=== PATIENT | female | born 1980 | race Caucasian/White ===

== ENCOUNTER → 2021-05-26 16:54 | Outpatient (CLI) | payer OTHER, SELFPAY | PROVIDERS: Visit Provider Podiatrist | DX: M79.674 Pain in right toe(s) (principal); M79.675 Pain in left toe(s) | CPT/HCPCS: 87102; 87206 ==

== ENCOUNTER → 2021-06-15 12:58 | Outpatient (CLI) | payer OTHER, SELFPAY ==
--- NOTE | 2021-06-15 13:04 | XR_ITS ---
PROCEDURE: XR ANKLE WT BEARING LT MIN 3V CLINICAL INDICATION: ankle pain And swelling COMPARISON: CR ANKL3 ANKLE-LT-3 VIEWS from 06/14/2017 FINDINGS: There is mild diffuse soft tissue swelling both medially and laterally. There is an old unfused fracture fragment adjacent to the medial malleolus with smooth borders. Lateral malleolus appears normal. Ankle mortise is normal. There are calcaneal enthesophytes both at the insertion of the plantar tendon and Achilles tendon. IMPRESSION: Mild diffuse soft tissue swelling, stable posttraumatic change medial malleolus Dictated by: Dr. Jeff Youngblood MD 06/16/2021 08:34 Dr. Jeff Youngblood MD in [place] 06/16/2021 08:34
== END ==
PROVIDERS: PCP Family Medicine; Visit Provider Podiatrist
DX: G89.29 Other chronic pain (principal); M25.372 Other instability, left ankle; M25.572 Pain in left ankle and joints of left foot
CPT/HCPCS: 73610

== ENCOUNTER → 2021-07-28 13:25 | Outpatient (CLI) | payer OTHER, SELFPAY ==
--- NOTE | 2021-07-28 13:42 | XR_ITS ---
PROCEDURE: XR FOOT WT BEARING RT 3V CLINICAL INDICATION: right 5th toe r/o fracture COMPARISON: CR FTR3 FOOT-RT-3 VIEWS from 04/26/2017 FINDINGS: No fracture or dislocation. No lytic or blastic change. There is normal mineralization. The joint spaces are well-preserved. No significant degenerative/arthritic changes. No erosive changes evident. Other findings:There is a small Achilles enthesophyte and tiny calcaneal spur. Minimal spurring noted along the anterior aspect of the navicular cuneiform joint. IMPRESSION: No acute findings. Dictated by: Parag Glasgow MD 07/28/2021 15:22 Parag Glasgow MD in [place] 07/28/2021 15:23
[2021-07-28 14:05] LABS: Basophils # 0.1 K/mm3 (0-0.2); Basophils % 0.6 % (0.1-2.0); Eosinophils # 0.4 K/mm3 (0.0-0.4); Eosinophils % 4.2 % (0.1-12.0); Hematocrit 41.2 % (37.0-47.0); Lymphocytes # 2.5 K/mm3 (0.7-4.5); Lymphocytes % 26.5 % (10-50); Mean Corpuscular Hemoglobin 29.9 pg (27.0-31.2); Mean Corpuscular Volume 88.2 fl (81-99); Mean Platelet Volume 9.6 fl (7.4-10.4); Monocytes # 0.4 K/mm3 (0.1-1.0); Monocytes % 3.6 % (1.7-9.3); Neutrophils # 6.2 K/mm3 (1.8-7.8); Platelet Count 331 K/mm3 (142-424); Red Blood Count 4.68 M/mm3 (4.20-5.40); Red Cell Distribution Width 13.4 % (11.5-17.5); White Blood Count 9.6 K/mm3 (4.8-10.8)
[2021-07-28 14:24] LABS: Hemoglobin A1C 5.4 % (4.0-6.0)
[2021-07-28 15:04] LABS: Alanine Aminotransferase 29 U/L (12-78); Albumin Level 3.9 g/dl (3.5-5.0); Albumin/Globulin Ratio 1.4 (1.1-1.8); Alkaline Phosphatase 83 U/L (38-126); Anion Gap 9.1 mEq/L (5-15); Aspartate Amino Transferase 29 U/L (14-36); Bilirubin,Total 0.5 mg/dl (0.2-1.3); Blood Urea Nitrogen 16 mg/dl (7-17); Calcium 9.4 mg/dl (8.4-10.2); Carbon Dioxide 24 mmol/L (22.0-30.0); Chloride 108 mmol/L (98-107); Estimated Glomerular Filt Rate 69 ml/min (>60); GFR (African American) 83 ML/MIN (>60); Globulin 2.8 g/dL (1.3-3.2); Glucose 116 mg/dl (74-100); Potassium 4.1 mmoL/L (3.5-5.1); Sodium 137 mmol/L (136-145); Total Protein,Serum 6.7 g/dl (6.3-8.2)
[2021-07-28 15:10] LABS: C-Reactive Protein 5.9 mg/L (0-4)
[2021-07-28 15:38] LABS: Thyroid Stimulating Hormone 2.64 uIU/mL (0.465-4.68)
[2021-07-28 16:12] LABS: Vitamin B12 267 pg/mL (239-931)
[2021-07-28 16:13] LABS: Folate 4.63 ng/mL
[2021-08-07 17:09] LABS: 1,25 Dihydroxy Vitamin D 34 pg/mL (.); 1,25-Dihydroxy, Vitamin D-2 <10 pg/mL (.); 1,25-Dihydroxy, Vitamin D-3 34 pg/mL (.)
== END ==
PROVIDERS: PCP Family Medicine; Visit Provider Podiatrist
DX: M79.674 Pain in right toe(s) (principal)
CPT/HCPCS: 36415; 73630; 80053; 82607; 82652; 82746; 83036; 84443; 85025; 86140; 87102; 87206; 87220

== ENCOUNTER → 2022-04-22 10:02 | Outpatient (CLI) | payer OTHER, SELFPAY | PROVIDERS: PCP Family Medicine; Visit Provider Orthopaedic Surgery | DX: M25.532 Pain in left wrist (principal) ==

== ENCOUNTER → 2022-06-29 14:28 | Outpatient (CLI) | payer OTHER, SELFPAY ==
--- NOTE | 2022-06-29 14:28 | MR_ITS ---
FINAL REPORT CLINICAL HISTORY: back pain. Low back pain. left side numbness stops at ankles. fall this morning and hit left side of back on table. FINDINGS: Multiplanar MR imaging of the lumbar spine was performed without contrast. On the sagittal T2-weighted images, there is abnormal decreased signal throughout the lumbar discs. The vertebrae are of normal height. The vertebral alignment is normal. L1-2: There is no significant canal stenosis or neural foraminal narrowing. L2-3: There is no significant canal stenosis or neural foraminal narrowing. L3-4: There is no significant canal stenosis or neural foraminal narrowing. L4-5: There is a mild disc bulge. There is mild bilateral neural foraminal narrowing. L5-S1: There is no significant canal stenosis or neural foraminal narrowing. IMPRESSION: Mild disc bulge at L4-5. No acute bony abnormality. Reviewed, Interpreted and Dictated by Jonathan Mata MD Transcribed by Rani Florez Authenticated and [facility]
== END ==
PROVIDERS: PCP Emergency Medicine; Visit Provider Emergency Medicine
DX: M54.9 Dorsalgia, unspecified (principal); M54.50 Low back pain, unspecified
CPT/HCPCS: 72148; 76376

== ENCOUNTER → 2022-08-03 17:11 | Outpatient (CLI) | payer OTHER, SELFPAY | PROVIDERS: Visit Provider Podiatrist | DX: R22.40 Localized swelling, mass and lump, unspecified lower limb (principal) | CPT/HCPCS: 87070; 87205 ==

== ENCOUNTER 2022-08-09 11:11 | Emergency (ER) | payer OTHER, SELFPAY ==
[2022-08-09 11:40] VITALS: BP 151/99; PULSE 72; RESP 19; TEMP 37; O2SAT 99; BMI 41.7
--- NOTE | 2022-08-09 12:16 | EXP.UTC ---
Discharge Plan Disposition Patient Disposition: Home, Self-Care Condition: Good Prescriptions Prescriptions: New ondansetron 4 mg tablet,disintegrating 4 mg PO Q8H PRN (Reason: nausea and vomiting) Qty: 10 0RF No Action promethazine 25 mg tablet 25 mg PO PRN mupirocin 2 % ointment 1 applic topical BID 21 Days Qty: 22 1RF Rx Instructions: Apply to affected area up to twice daily doxycycline hyclate 100 mg tablet 100 mg PO BID 10 Days Qty: 20 0RF tramadol 50 mg tablet 50 mg PO Q6H PRN (Reason: pain) 5 Days Qty: 20 0RF methylprednisolone 4 mg tablets,dose pack See Rx Instructions PO PER PKG DIR Qty: 21 0RF Rx Instructions: PO PER PKG DIR gabapentin 600 mg tablet 600 mg PO DAILY PRN lidocaine 5 % adhesive patch,medicated 1 patch topical DAILY Qty: 30 0RF Rx Instructions: leave on most painful area for up to 12 hrs diclofenac sodium 1 % gel 2 g topical QID Qty: 100 0RF Rx Instructions: apply to single elbow, wrist or hand; for hand includes palm/fingers/back of hand metoprolol succinate 50 mg tablet extended release 24 hr 50 mg PO DAILY Qty: 90 0RF buspirone 10 mg tablet 10 mg PO DAILY Qty: 90 0RF quetiapine 50 mg tablet 50 mg PO HS Qty: 90 0RF quetiapine 100 mg tablet 100 mg PO DAILY Qty: 90 0RF Rx Instructions: take with a 50mg tablet at HS levothyroxine [Euthyrox] 175 mcg tablet 175 mcg PO DAILY Qty: 90 0RF lisinopril-hydrochlorothiazide 10-12.5 mg tablet 1 tab PO DAILY Qty: 90 0RF Referrals Follow up/Referrals: Deven Pope MD [Primary Care Provider] - See instructions Activity Restrictions/Add. Instructions Additional Instructions/Restrictions: Drink extra fluids with and between meals. If you have difficulty drinking, try very small amounts of water or suck on ice chips. ? Avoid fruit juices, as these do not replace minerals and can actually increase diarrhea. ? Children and adults can use sports drinks to replenish electrolytes. Younger children and infants should use products formulated for children, like oral rehydration solutions. ? Eat food in small amounts and let your stomach recover. ? Get lots of rest. You may feel tired or weak. ? No greasy or fried foods for the next 24-48 hours BRAT diet Bananas Rice Apples and Duque ? Make sure to drink plenty of liquids ? Return if needed ? Straight to ER if any life threatening symptoms ? Zofran as prescribed Follow up with Dr Heredia for further evaluation and treatment and pain control ? Follow up with family doctor in the next 48-72 hours if no improvement or any worsening of symptoms Clinical Impressions Clinical Impression: Nausea & vomiting Qualifiers: Vomiting type: unspecified Qualified Code(s): R11.2 - Nausea with vomiting, unspecified Instructions Patient Instructions: Nausea and Vomiting-Adult, Ondansetron Discharge ED Provider: Adilene Padilla [facility] General Stated complaint: Vomiting,Headache Mode of Arrival: Ambulatory Source of Information: Patient Limitations: No Limitations Time Seen by Provider: 08/09/22 12:17 Description of Symptoms (Recalled from Triage Doc. by RN): PATIENT C/O VOMITING, HEADACHE AND SWEATING. RECENTLY HAD FOOT SURGERY HEENT Symptoms (Recalled from RN notes): Yes Resp Symptoms (Recalled from RN notes): No Skin Symptoms (Recalled from RN notes): No MS Symptoms (Recalled from RN notes): No Functional Status (Recalled from RN notes): WNL History of Present Illness Provider Complaint: Patient states that she had surgery on her right little toe last week, States that she was around sick family member over the weekend and she has been having N/V and felt like she may have had a slight fever last night because she was sweating but didnt check it States that she was worried she may have a stomach bug or something Related Data Ho
[2022-08-09 12:45] VITALS: BP 151/99; PULSE 72; RESP 19; TEMP 37; O2SAT 99
[2022-08-09 12:46] LABS: Adenovirus,PCR Not Detected (NotDetected); Bordetella Pertussis Not Detected (NotDetected); Chlamydophila Pneumoniae, PCR Not Detected (NotDetected); Coronavirus 19, PCR Not Detected (NotDetected); Coronavirus 229E Not Detected (NotDetected); Coronavirus NL63 Not Detected (NotDetected); Coronavirus OC43 Not Detected (NotDetected); Coronovirus HKU1,PCR Not Detected (NotDetected); Human Metapneumovirus Not Detected (NotDetected); Influenza A, PCR Not Detected (NotDetected); Influenza AH1, 2009 Not Detected (NotDetected); Influenza AH1, PCR Not Detected (NotDetected); Influenza AH3,PCR Not Detected (NotDetected); Influenza B, PCR Not Detected (NotDetected); Mycoplasma Pneumoniae, PCR Not Detected (NotDetected); Parainfluenza 1, PCR Not Detected (NotDetected); Parainfluenza 2, PCR Not Detected (NotDetected); Parainfluenza 3, PCR Not Detected (NotDetected); Parainfluenza 4, PCR Not Detected (NotDetected); Respiratory Syncytial Virus Not Detected (NotDetected); Rhinovirus/Enterovirus Not Detected (NotDetected)
== END 2022-08-09 12:48 | disposition home or self-care (01) ==
PROVIDERS: Emergency Provider Nurse Practitioner; PCP Emergency Medicine
DX: R11.2 Nausea with vomiting, unspecified (principal)
CPT/HCPCS: 87581; 87632; 87798; 99212; C9803; G0463; U0003; U0005

== ENCOUNTER → 2022-12-08 23:15 | Outpatient (CLI) | payer OTHER, SELFPAY ==
[2022-12-08 18:51] LABS: Basophils # 0.1 K/mm3 (0-0.2); Basophils % 0.7 % (0.1-2.0); Eosinophils # 0.4 K/mm3 (0.0-0.4); Eosinophils % 3.9 % (0.1-12.0); Hematocrit 46.1 % (37.0-47.0); Hemoglobin 14.6 g/dL (12.2-16.2); Lymphocytes # 2.4 K/mm3 (0.7-4.5); Lymphocytes % 25.7 % (10-50); Mean Corpuscular HGB Conc 31.7 g/dL (31.8-35.4); Mean Corpuscular Hemoglobin 28.5 pg (27.0-31.2); Mean Corpuscular Volume 89.9 fl (81-99); Mean Platelet Volume 10.2 fl (7.4-10.4); Monocytes # 0.4 K/mm3 (0.1-1.0); Monocytes % 4.3 % (1.7-9.3); Neutrophils % 65.5 % (37.0-80.0); Platelet Count 306 K/mm3 (142-424); Red Blood Count 5.12 M/mm3 (4.20-5.40); White Blood Count 9.2 K/mm3 (4.8-10.8)
[2022-12-08 18:58] LABS: Alanine Aminotransferase 33 U/L (12-78); Albumin Level 4.4 g/dl (3.5-5.0); Albumin/Globulin Ratio 1.4 (1.1-1.8); Alkaline Phosphatase 106 U/L (38-126); Anion Gap 13.2 mEq/L (5-15); Aspartate Amino Transferase 32 U/L (14-36); Bilirubin,Total 0.8 mg/dl (0.2-1.3); Blood Urea Nitrogen 11 mg/dl (7-17); Calcium 9.3 mg/dl (8.4-10.2); Carbon Dioxide 28 mmol/L (22.0-30.0); Chloride 102 mmol/L (98-107); Chol/HDL Ratio 4.7 (1-3.5); Cholesterol 197 mg/dl (140-200); Estimated Glomerular Filt Rate 78 ml/min (>60); GFR (African American) 94 ML/MIN (>60); Globulin 3.2 g/dL (1.3-3.2); Glucose 106 mg/dl (74-100); HDL Cholesterol 42 mg/dl (40-60); Potassium 4.2 mmoL/L (3.5-5.1); Sodium 139 mmol/L (136-145); Total Protein,Serum 7.6 g/dl (6.3-8.2); Triglycerides 140 mg/dl (30-150); VLDL Cholesterol 28 mg/dL (0-40)
[2022-12-08 19:10] LABS: Direct LDL Cholesterol 127.27 mg/dL (100-129)
[2022-12-08 19:14] LABS: 25-OH Vitamin D, Total 20.8 ng/mL (30-100)
[2022-12-08 19:29] LABS: Thyroid Stimulating Hormone 0.05 uIU/mL (0.465-4.68)
[2022-12-08 19:47] LABS: Amphetamine/Metha Screen,Urine Negative ng/ml (<1000)
[2022-12-08 19:48] LABS: Barbiturates Screen,Urine Negative ng/ml (<200); Benzodiazepines Screen,Urine Negative ng/ml (<200)
[2022-12-08 19:49] LABS: Cannabinoid Screen,Urine Negative ng/ml (<50)
[2022-12-08 19:50] LABS: Cocaine Screen,Urine Negative ng/ml (<300); Methadone Screen,Urine Negative ng/ml (<300)
[2022-12-08 19:52] LABS: Opiate Screen,Urine Negative ng/ml (<300)
[2022-12-08 20:01] LABS: Phencyclidine Screen,Urine Negative ng/ml (<25)
== END ==
PROVIDERS: PCP Emergency Medicine; Visit Provider Emergency Medicine
DX: I10 Essential (primary) hypertension (principal); Z79.899 Other long term (current) drug therapy; E55.9 Vitamin D deficiency, unspecified
CPT/HCPCS: 80053; 80061; 80305; 82306; 84443; 85025

== ENCOUNTER → 2022-12-20 10:51 | Outpatient (CLI) | payer OTHER, SELFPAY ==
--- NOTE | 2022-12-20 11:07 | XR_ITS ---
FINAL REPORT CLINICAL HISTORY: Right 5th toe Pain FINDINGS: Multiple views of the right toes were obtained. There is no acute fracture. There is no dislocation. There are no acute soft tissue abnormalities. IMPRESSION: No acute process. Reviewed, Interpreted and Dictated by Jonathan Mata MD Transcribed by Danny Morrison Authenticated and [facility]
[2022-12-20 11:57] LABS: Basophils % 0.5 % (0.1-2.0); Eosinophils # 0.3 K/mm3 (0.0-0.4); Eosinophils % 3.5 % (0.1-12.0); Hematocrit 43.1 % (37.0-47.0); Hemoglobin 14.4 g/dL (12.2-16.2); Lymphocytes # 2.3 K/mm3 (0.7-4.5); Lymphocytes % 24.2 % (10-50); Mean Corpuscular HGB Conc 33.3 g/dL (31.8-35.4); Mean Corpuscular Hemoglobin 29.3 pg (27.0-31.2); Mean Corpuscular Volume 87.8 fl (81-99); Mean Platelet Volume 9.8 fl (7.4-10.4); Monocytes # 0.5 K/mm3 (0.1-1.0); Neutrophils # 6.3 K/mm3 (1.8-7.8); Neutrophils % 66.9 % (37.0-80.0); Platelet Count 312 K/mm3 (142-424); Red Cell Distribution Width 13.2 % (11.5-17.5); White Blood Count 9.4 K/mm3 (4.8-10.8)
[2022-12-20 12:20] LABS: Chloride 102 mmol/L (98-107); Sodium 137 mmol/L (136-145)
[2022-12-20 12:22] LABS: Blood Urea Nitrogen 12 mg/dl (7-17); Estimated Glomerular Filt Rate 78 ml/min (>60); GFR (African American) 94 ML/MIN (>60)
[2022-12-20 12:23] LABS: Alanine Aminotransferase 33 U/L (12-78); Albumin/Globulin Ratio 1.3 (1.1-1.8); Alkaline Phosphatase 100 U/L (38-126); Aspartate Amino Transferase 30 U/L (14-36); Bilirubin,Total 0.6 mg/dl (0.2-1.3); Calcium 9.3 mg/dl (8.4-10.2); Carbon Dioxide 29 mmol/L (22.0-30.0); Globulin 3.2 g/dL (1.3-3.2); Glucose 98 mg/dl (74-100); Total Protein,Serum 7.2 g/dl (6.3-8.2)
[2022-12-20 12:56] LABS: Erythrocyte Sedimentation Rate 51 mm/hr (0-20)
[2022-12-20 14:34] LABS: Uric Acid 7.3 mg/dl (2.5-6.2)
[2022-12-20 14:39] LABS: C-Reactive Protein 7.3 mg/L (0-4)
== END ==
PROVIDERS: PCP Emergency Medicine; Visit Provider Podiatrist
DX: M79.674 Pain in right toe(s) (principal)
CPT/HCPCS: 36415; 73660; 80053; 84550; 85025; 85651; 86140

== ENCOUNTER → 2023-02-02 23:18 | Outpatient (CLI) | payer OTHER, SELFPAY ==
[2023-02-02 17:58] LABS: Blood Urea Nitrogen 13 mg/dl (7-17); Calcium 9.3 mg/dl (8.4-10.2); Carbon Dioxide 28 mmol/L (22.0-30.0); Chloride 104 mmol/L (98-107); Estimated Glomerular Filt Rate 78 ml/min (>60); GFR (African American) 94 ML/MIN (>60); Glucose 95 mg/dl (74-100); Sodium 140 mmol/L (136-145); Uric Acid 7.5 mg/dl (2.5-6.2)
== END ==
PROVIDERS: PCP Emergency Medicine; Visit Provider Emergency Medicine
DX: E66.9 Obesity, unspecified (principal); Z68.39 Body mass index [BMI] 39.0-39.9, adult
CPT/HCPCS: 80048; 84550

== ENCOUNTER → 2023-02-21 23:34 | Outpatient (CLI) | payer OTHER, SELFPAY ==
[2023-02-21 18:36] LABS: Amphetamine/Metha Screen,Urine Negative ng/ml (<1000)
[2023-02-21 18:37] LABS: Barbiturates Screen,Urine Negative ng/ml (<200)
[2023-02-21 18:39] LABS: Benzodiazepines Screen,Urine Negative ng/ml (<200)
[2023-02-21 18:40] LABS: Cannabinoid Screen,Urine Negative ng/ml (<50); Cocaine Screen,Urine Negative ng/ml (<300)
[2023-02-21 18:41] LABS: Methadone Screen,Urine Negative ng/ml (<300); Opiate Screen,Urine Negative ng/ml (<300)
[2023-02-21 18:42] LABS: Phencyclidine Screen,Urine Negative ng/ml (<25)
== END ==
PROVIDERS: PCP Emergency Medicine; Visit Provider Emergency Medicine
DX: Z79.899 Other long term (current) drug therapy (principal)
CPT/HCPCS: 80305

== ENCOUNTER → 2023-02-22 11:32 | Outpatient (CLI) | payer OTHER, SELFPAY | PROVIDERS: PCP Emergency Medicine; Visit Provider Emergency Medicine | DX: R55 Syncope and collapse (principal) | CPT/HCPCS: 93225; 93226 ==

== ENCOUNTER 2023-02-22 19:55 | Emergency (ER) | payer OTHER, SELFPAY ==
[2023-02-22 19:55] VITALS: BP 128/77; PULSE 79; RESP 18; TEMP 37.1; O2SAT 99; BMI 40.1
--- NOTE | 2023-02-22 19:58 | ECG_ITS ---
APPROVED REPORT Exam: Resting ECG HR:84 bpm ECG Measurements Heart Rate 84 AXES WY 179 P 21 QRSd 100 QRS 7 QT 365 T -7 QTc 406 Conclusion SINUS RHYTHM NORMAL ECG UNCONFIRMED REPORT Electronically signed by : August Mackey MD 02/24/2023 21:19:06
--- NOTE | 2023-02-22 20:19 | XR_ITS ---
PROCEDURE INFORMATION: Exam: XR Chest Exam date and time: 02/22/2023 8:28 PM Age: 42 years old Clinical indication: Pain; Chest pressure; Additional info: Chest pain TECHNIQUE: Imaging protocol: Radiologic exam of the chest. Views: 1 view. COMPARISON: No relevant prior studies available. FINDINGS: Lungs: Low lung volumes with associated vascular crowding and bibasilar atelectasis. Pleural spaces: Unremarkable. No pleural effusion. No pneumothorax. Heart/Mediastinum: Unremarkable. No cardiomegaly. Bones/joints: Unremarkable. IMPRESSION: No acute findings.
[2023-02-22 20:30] LABS: Basophils # 0.1 K/mm3 (0-0.2); Basophils % 0.6 % (0.1-2.0); Chloride 102 mmol/L (98-107); Eosinophils # 0.5 K/mm3 (0.0-0.4); Hematocrit 41.4 % (37.0-47.0); Hemoglobin 13.2 g/dL (12.2-16.2); Lymphocytes # 2.7 K/mm3 (0.7-4.5); Lymphocytes % 21.4 % (10-50); Mean Corpuscular HGB Conc 31.9 g/dL (31.8-35.4); Mean Corpuscular Hemoglobin 28.3 pg (27.0-31.2); Mean Corpuscular Volume 88.7 fl (81-99); Mean Platelet Volume 9.1 fl (7.4-10.4); Monocytes # 0.5 K/mm3 (0.1-1.0); Monocytes % 4.1 % (1.7-9.3); Neutrophils # 8.7 K/mm3 (1.8-7.8); Neutrophils % 69.9 % (37.0-80.0); Platelet Count 316 K/mm3 (142-424); Potassium 3.2 mmoL/L (3.5-5.1); Red Blood Count 4.66 M/mm3 (4.20-5.40); Red Cell Distribution Width 13.6 % (11.5-17.5); Sodium 140 mmol/L (136-145); White Blood Count 12.5 K/mm3 (4.8-10.8)
[2023-02-22 20:31] VITALS: BP 110/79; PULSE 76; O2SAT 98
[2023-02-22 20:32] LABS: Amylase 66 U/L (30-110)
--- NOTE | 2023-02-22 20:32 | PC.NURSE ---
RAD at for CXR
[2023-02-22 20:33] LABS: Alanine Aminotransferase 31 U/L (12-78); Albumin/Globulin Ratio 1.3 (1.1-1.8); Alkaline Phosphatase 91 U/L (38-126); Anion Gap 10.2 mEq/L (5-15); Aspartate Amino Transferase 31 U/L (14-36); Bilirubin,Total 0.5 mg/dl (0.2-1.3); Blood Urea Nitrogen 14 mg/dl (7-17); Calcium 8.8 mg/dl (8.4-10.2); Carbon Dioxide 31 mmol/L (22.0-30.0); Creatinine Clearance Estimated 120 mL/min (50-200); Estimated Glomerular Filt Rate 60 ml/min (>60); GFR (African American) 73 ML/MIN (>60); Globulin 3.2 g/dL (1.3-3.2); Glucose 116 mg/dl (74-100); Lipase 78 U/L (23-300); Total Protein,Serum 7.2 g/dl (6.3-8.2)
--- NOTE | 2023-02-22 20:41 | PC.NURSE ---
Pt ambulatory to bathroom
[2023-02-22 20:43] LABS: Microscopic, Urine URINE MICROSCOPIC (MICROSCOPIC)
[2023-02-22 20:45] LABS: Troponin I < 0.01 ng/ml (0.00-0.034)
[2023-02-22 20:48] LABS: Appearance,Urine CLEAR (Clear); Bilirubin,Urine Negative (Negative); Blood, Urine Negative (Negative); Color,Urine YELLOW (Yellow); Glucose,Urine (UA) Negative (Negative); Ketones,Urine Negative (Negative); Leukocyte Esterase,Urine Negative (Negative); Nitrate,Urine Negative (Negative); PH,Urine 6.5 (5.0-8.5); Protein,Urine Negative (Negative); Urobilinogen,Urine 0.2 EU/dl (0.2)
[2023-02-22 20:59] LABS: Squamous Epithelial Cell,Urine Occasional #/hpf (0-5); WBC,Urine Occasional #/hpf (0-3)
[2023-02-22 21:00] VITALS: BP 130/81; PULSE 78; O2SAT 98
--- NOTE | 2023-02-22 21:18 | PC.NURSE ---
pt's boyfriend, Fabian, called and requesting an update. Pt gave consent to s/w him and provide an update.
[2023-02-22 21:31] VITALS: BP 102/65; PULSE 77; O2SAT 98
[2023-02-22 22:01] VITALS: BP 127/78; PULSE 79; O2SAT 96
--- NOTE | 2023-02-22 22:05 | PC.NURSE ---
Dr. Pope at
--- NOTE | 2023-02-22 22:09 | [facility].EDCP ---
Discharge Plan Disposition Patient Disposition: Home, Self-Care Chief Complaint: Chest Pain Prescriptions Prescriptions: No Action allopurinol 100 mg tablet 100 mg PO DAILY indomethacin 50 mg capsule 50 mg PO BID PRN (Reason: gout) Rx Instructions: administer with food or milk lithium carbonate 300 mg tablet extended release 300 mg PO BID tizanidine 4 mg capsule 4 mg PO HS ipratropium-albuterol 0.5 mg-3 mg(2.5 mg base)/3 mL solution for nebulization 3 ml inhalation Q4-6H PRN (Reason: shortness of breath or wheezing) Qty: 180 1RF albuterol sulfate [Proventil HFA] 90 mcg/actuation HFA aerosol inhaler 2 puff inhalation Q8H PRN (Reason: shortness of breath or wheezing) Qty: 8.5 1RF promethazine 25 mg tablet 25 mg PO Q8H PRN (Reason: nausea and vomiting) Qty: 30 0RF cholecalciferol (vitamin D3) 1,250 mcg (50,000 unit) capsule 1,250 mcg PO WEEKLY Qty: 12 3RF acetaminophen-codeine 300-30 mg tablet 1 tab PO TID PRN (Reason: pain) Qty: 15 0RF metoprolol succinate 50 mg tablet extended release 24 hr See Rx Instructions .ROUTE .COMPLEX Rx Instructions: Take 1 tablet by mouth once daily gabapentin 400 mg capsule 400 mg PO TID quetiapine 100 mg tablet See Rx Instructions .ROUTE .COMPLEX Rx Instructions: TAKE 1 TABLET BY MOUTH ONCE DAILY, TAKE WITH A 50 MG TABLET AT BEDTIME. lidocaine 5 % adhesive patch,medicated 1 patch topical DAILY Rx Instructions: leave on most painful area for up to 12 hrs nicotine 21 mg/24 hr patch 24 hour 1 patch transdermal DAILY lisinopril-hydrochlorothiazide 10-12.5 mg tablet 1 tab PO DAILY quetiapine 50 mg tablet See Rx Instructions .ROUTE .COMPLEX Rx Instructions: TAKE 1 TABLET BY MOUTH AT BEDTIME NIGHTLY budesonide-formoterol [Symbicort] 80-4.5 mcg/actuation HFA aerosol inhaler 1 puff inhalation BID levothyroxine 125 mcg capsule 125 mcg PO DAILY Referrals Follow up/Referrals: Deven Pope MD [Primary Care Provider] - See instructions Luis Andrew MD [Staff Physician] - See instructions Clinical Impressions Clinical Impression: Chest pain Instructions Patient Instructions: DI for Chest Pain Discharge ED Provider: Toshia (ED),Deven Feldman Chest Pain HPI General Chief Complaint: Chest Pain Stated Complaint: Chest Pain Time Seen by Provider: 02/22/23 21:50 Mode of Arrival: EMS Source of Information: Patient and Medical Record Limitations: No Limitations Description of Symptoms (Recalled from ER Triage Doc. by RN): pt reports that she has been having new onset chest pain since this morning when she was seen to have a halter monitor placed. the pt states that she has had stomach issues since yesterday and assumed it was just gas. the pt states her pain is 9/10 in her chest and goes through to the back History of Present Illness HPI narrative: pt with episode of lt sided chest pain and was relieved with ntg per ems - pt wearing holter - MD complaint: chest pain indicative of cardiac Onset (ago): hour(s) Duration: now resolved Activity at onset: during rest Pain location: left chest Severity: moderate Quality: tightness Relieving factors: nitroglycerin Risk Factors for CAD: Hypertension, Family Hx of CAD and Smoking Treatments prior to or on arrival for Cardiac Chest Pain: aspirin and nitroglycerin TR[place]ON Score for Non-Stemi Age of Patient: 40-49 years old Heart Rate: 70-89 bpm Systolic Blood Pressure: 120-139 mmhg Serum Creatinine: 0.80-1.19 mg/dl CHF [place] Class: I-No CHF Other Risk Factors: None Non-Stemi Risk Score: 75 Risk Stratification: 1-108 = Low Risk Related Data On Oral Contraceptives: No Home Medications Medication Instructions Recorded Confirmed allopurinol 100 mg tablet 100 mg PO DAILY . 02/02/23 02/22/23 indomethacin 50 mg capsule 50 mg PO BID PRN gout 02/02/23 02/22/23 lithium carbonate 300 mg 300 mg PO BID .
--- NOTE | 2023-02-22 22:11 | PC.NURSE ---
speaking with pt
--- NOTE | 2023-02-22 22:12 | PC.NURSE ---
Dr. Andrew paged
--- NOTE | 2023-02-22 22:13 | PC.NURSE ---
Dr. Pope speaking with Dr. Andrew
[2023-02-22 22:34] VITALS: BP 127/75; PULSE 84; RESP 20; TEMP 37; O2SAT 98
== END 2023-02-22 22:39 | disposition home or self-care (01) ==
PROVIDERS: Emergency Provider Emergency Medicine; PCP Emergency Medicine
DX: R07.9 Chest pain, unspecified (principal); I10 Essential (primary) hypertension; F41.9 Anxiety disorder, unspecified; F32.A Depression, unspecified; E07.9 Disorder of thyroid, unspecified; F17.200 Nicotine dependence, unspecified, uncomplicated
CPT/HCPCS: 71045; 80053; 81001; 82150; 83690; 84484; 85025; 93005; 99285

== ENCOUNTER → 2023-03-09 09:24 | Outpatient (CLI) | payer OTHER, SELFPAY ==
--- NOTE | 2023-03-09 09:24 | MR_ITS ---
FINAL REPORT TECHNIQUE: Multiplanar and multisequence imaging of the brain was obtained before and after contrast administration. CLINICAL HISTORY: convulsions per patient she has been having passing out spells constant headaches 2-3 times within a month x 1 year and getting worse 22ml prohance given COMPARISON: None FINDINGS: The gyri and sulci are within normal limits for age. There is no mass effect or midline shift. Signal intensity is normal. No hydrocephalus. Low-lying cerebellar tonsils are present. The cerebellum and brainstem are otherwise normal in appearance. There is normal signal in the proximal cervical cord. There are no areas of restricted diffusion on diffusion weighted images to suggest acute infarct. Soft tissues are without acute abnormality. No pathologic contrast enhancement is identified. IMPRESSION: No acute intracranial abnormality and no pathologic contrast enhancement. Reviewed, Interpreted and Dictated by Irena Castro MD Transcribed by Lory Srivastava Authenticated and [facility]
== END ==
PROVIDERS: PCP Emergency Medicine; Visit Provider Specialist
DX: R55 Syncope and collapse (principal); R56.9 Unspecified convulsions
CPT/HCPCS: 70553; A9576

== ENCOUNTER → 2023-03-10 09:15 | Day surgery (SDC) | payer OTHER, SELFPAY ==
[2023-03-10 10:06] VITALS: BP 136/99; PULSE 67; RESP 18; O2SAT 96
--- NOTE | 2023-03-10 13:18 | EXP.TILT ---
Findings:: PROCEDURE: Upright Tilt Table Test REQUESTING PROVIDER: Marivel Argueta MD INDICATION: Recurrent loss of consciousness Beta Blockers:
--- NOTE | 2023-03-10 13:22 | EXP.TILT ---
Findings:: PROCEDURE: Upright Tilt Table Test REQUESTING PROVIDER: Marivel Argueta MD INDICATION: Recurrent loss of consciousness BETA BLOCKERS: Unsure PRETEST VITAL SIGNS (supine): BP 143/77, HR 55 and regular, O2sats 97% PROCEDURE SUMMARY: Patient was prepped per protocol, IV started, connected to heart, blood pressure and oxygen saturation monitors and safety straps applied. She was then tilted to 70 degrees upright for a total of 35 minutes. After being raised upright she complained of a headache and worsening nausea (she was nauseated prior to the procedure) and some mild lightheadedness. Her symptoms persisted throughout the test with the nausea getting somewhat worse and the lightheadedness and headache remaining about the same. She had no syncope or near syncope. Her systolic blood pressure dropped from 143 supine to 114 immediately upon being placed in the upright position while her diastolic BP went up slightly (from 77 to 84). Heart rate increased from 55 bpm supine to 70 bpm immediately after being raised upright. While in the upright position her BP slowly increased to a high of 129/93 after 25 minutes. Heart rate increased slightly to a maximum of 78 bpm, also at 25 minutes upright. After 25 minutes upright there was minimal change in either the BP or HR. Her rhythm was normal sinus throughout and O2sats remained in the mid 90s. CONCLUSIONS: Evidence of mildly symptomatic orthostatic hypotension.
== END ==
PROVIDERS: PCP Emergency Medicine; Visit Provider Specialist
DX: I95.1 Orthostatic hypotension (principal); Z79.899 Other long term (current) drug therapy; R55 Syncope and collapse
CPT/HCPCS: 93660

== ENCOUNTER → 2023-03-30 10:54 | Outpatient (CLI) | payer OTHER, SELFPAY ==
--- NOTE | 2023-03-30 10:54 | NM_ITS ---
APPROVED REPORT Exam: Nuclear Stress Test Indication: chest pain..soa..fatigue..palpitations Patient Location: Outpatient Stress Tech: Jeannine Shepard [place] Tech:Kassi Anand ALEJANDRADhiraj RT(R)(N) Ht: 5 ft 4 in Wt: 243 lbs Bra Size: 2xl HR: 72 bpm BP: 122/73 mmHg BSA: 2.12 m2 Rhythm: NSR TID: 0.94 BMI: 41.7 History: chest pain..soa..fatigue..palpitations Procedure: Patient received 0.4 mg of intravenous Lexiscan, resting heart rate 72 bpm, resting blood pressure 122/73 mmHg, with Lexiscan maximum heart rate achieved was 92 bpm which is 85 % of the maximum predicted heart rate and blood pressure was 127/75 mmHg. With Lexiscan, patient denied any complaint of chest pain. Cardiac Stress and Resting SPECT Images: Cardiac Stress and Resting SPECT images were obtained using technetium 99m Myoview 32.9 mCi stress and 10.42 mCi at rest. Resting and stress imaging in both supine and prone positions demonstrate no evidence of fixed or reversible perfusion defects. Gated imaging demonstrates normal global and regional LV systolic function. LVEF is calculated at 60%. Conclusion: No evidence of fixed or reversible perfusion defects. Gated imaging demonstrates normal global and regional LV systolic function. LVEF is calculated at 60%. Electronically signed by : Daria Candelaria, 04/02/2023 17:04:42
--- NOTE | 2023-03-30 12:46 | CA_ITS ---
APPROVED REPORT EXAM: Comprehensive 2D, Doppler, and color-flow Echocardiogram Conservation Of Resources Commissioner: Margarita Collins, RCS, RVS Ht: 5 ft 4 in Wt: 232lbs BSA: 2.08 BP: 127/78 mmHg Indications: syncope, SOA, smoker, Family hx- HD, Obesity 2D Dimensions Aortic Root 2.95 cm LA Volume 41.30 mL Left Atrium 3.20 cm LA Volume Index 19.40 mL/m2 (M/F) 16-34 LVOT 2.00 cm (M/F) 1.5-2.5 M-Mode Dimensions RVDd 2.09 cm (0.9-2.6) LA Diam 3.54 cm (1.9-4.0) LVDd 4.87 cm (3.5-5.7) Ao Diam 3.13 cm (2.0-3.7) LVDs 3.15 cm (3.5-5.7) IVSd 0.87 cm (0.6-1.1) PWd 1.10 cm (0.6-1.1) EF (Teich) 64.60% EPSs 0.38 cm FS 35.30% EDV (Teich) 111.20 mL TAPSE 2.54 (<1.7) ESV (Teich) 39.40 mL LV Diastology E Decel Time 213.00 (160-240 msec) E/A Ratio 1.47 MED E' 7.60 (< 7 cm/sec) MED A' 10.90 cm/s E'/MED E' Ratio 9.83 (>14) LAT E' 10.80 (<10 cm/sec) LAT A' 7.80 cm/s E/LAT E' Ratio 6.92 (>14) Aortic Valve LVOT Max 100.00 (70-110 cm/s) LVOT VTI 20.01 cm AoV Peak Paul. 133.00 (50-130 cm/s) AO Peak GR. 7.00 mmHg AO Mean GR. 3.50 (<5 mmHg) AO VTI 26.39 (18-25 cm) MAYRA (VTI) 2.38 (2.5-4.5 cm2) Mitral Valve MV A Velocity 51.00 (40-130 cm/s) E/A Ratio 1.47 MV Decel. Time 213.00 (160-240 ms) Pulmonary Valve PV Peak Velocity 78.00 (50-150 cm/s) W[place] End VMAX 247.00 cm/s Left Ventricle The left ventricle is normal size. The left ventricular systolic function is normal. The left ventricular ejection fraction is within the normal range. There is increased LV wall thickness (IVSd 1.3 cm). There is no evidence of LVOT gradient at rest. There is normal LV segmental wall motion. The left ventricular diastolic function is normal. LVEF is 55%. Right Ventricle The right ventricle is normal size. The right ventricular systolic function is normal. There is increased RV wall thickness. Atria The left atrium size is normal. The right atrium size is normal. There is no Doppler evidence of interatrial shunt. Aortic Valve The aortic valve opens well. There is no aortic valvular stenosis. No aortic regurgitation is present. Mitral Valve The mitral valve is normal in structure. There is no OSORIO or septal contact. No evidence of mitral valve stenosis. No mitral regurgitation. Tricuspid Valve The tricuspid valve leaflets are thin and pliable. Trace tricuspid regurgitation. There is insufficient TR jet to estimate RVSP. Pulmonic Valve The pulmonary valve is normal in structure. Trace pulmonic regurgitation. Great Vessels The aortic root is normal in size. The ascending aorta is normal in size. IVC is normal in size and collapses >50% with inspiration. Pericardium There is trivial pericardial effusion. Other Information Study Quality: Fair Conclusion Normal biventricular systolic function. Increased LV wall thickness (IVSd 1.3 cm). No LVOT obstruction at rest. No OSORIO or septal contact. No significant valvular disease. Electronically signed by : Daria Candelaria, 03/31/2023 19:48:23
--- NOTE | 2023-03-30 14:10 | CA_ITS ---
APPROVED REPORT Exam: Pharmacologic Technologist: Jeannine Silver, Ht: 5 ft 4 in Wt: 232 lbs BSA: 2.08 m2 HR: 73 bpm BP: 122/73 mmHg Rhythm: NSR Medical History Medications: Levothyroxine,,,,, Metoprolol,,,,, Gabapentin,,,,, Allopurinol,,,,, Duoneb,,,,, SyMBICORT,,,,, Naproxen,,,,, Albuterol,,,,, Vit D3,,,,, ProMETHAZINE,,,,, Tizanidine,,,,, Cyclobenzaprine,,,,, Stress Test Details Test: LEXISCAN Reason for pharmacologic stress test: changed from exercise stress test due to inability to reach target heart rate. HR Resting HR: 72 bpm Max Heart Rate (APMHR): 176 bpm Max HR Achieved: 92 bpm Target HR (85% APMHR): 150 bpm % of APMHR: 52 Recovery HR: 76 bpm BP Resting BP: 122/73 mmHg Max BP: 127/75 mmHg Recovery BP: 119.0/69.0 mmHg ECG Resting ECG: NSR, NS ST-T abnormalities in inferolateral leads Stress ECG: No change Arrhythmia: None Clinical Exercise duration: 04:13 min Highest Stage Achieved: Exercise capacity: n/a METs Stress ECG Conclusion Symptoms: Mild SOA, nausea, headache. No CP. Arrhythmias/Ectopy: None ST-T Changes: No significant ST changes. Conclusion: Unremarable Lexiscan stress. Myoview images reported separately. Test Summary REST . . . . . . . Resting REST 04:37 . . 72 . 122/ 73 . . Stage 1 01:00 . . 90 . . . . Stage 2 01:00 . . 87 . . . . Stage 3 01:00 . . 83 . 127/ 75 . . Stage 4 01:00 . . 80 . 127/ 75 . . Stage 4 01:13 . . 82 . 115/ 71 . Stop exercise at 04:13 RECOVERY 01:00 . . 80 . . . . RECOVERY 02:00 . . 79 . . . . RECOVERY 03:00 . . 78 . 123/ 71 . . RECOVERY 03:37 . . 76 . 119/ 69 . . Electronically signed by : Daria Candelaria, 04/02/2023 17:02:36
== END ==
LOC: RAD 10:54
PROVIDERS: PCP Emergency Medicine; Visit Provider Nurse Practitioner
DX: R06.00 Dyspnea, unspecified (principal); R07.9 Chest pain, unspecified; R55 Syncope and collapse
CPT/HCPCS: 78452; 93017; 93306; A9502; J2785

== ENCOUNTER → 2023-05-10 22:47 | Outpatient (CLI) | payer OTHER, SELFPAY ==
[2023-05-10 13:35] LABS: Amphetamine/Metha Screen,Urine Negative ng/ml (<1000); Benzodiazepines Screen,Urine Negative ng/ml (<200)
[2023-05-10 13:36] LABS: Barbiturates Screen,Urine Positive ng/ml (<200)
[2023-05-10 13:37] LABS: Cannabinoid Screen,Urine Negative ng/ml (<50); Methadone Screen,Urine Negative ng/ml (<300)
[2023-05-10 13:38] LABS: Cocaine Screen,Urine Negative ng/ml (<300)
[2023-05-10 13:39] LABS: Opiate Screen,Urine Negative ng/ml (<300)
[2023-05-10 13:40] LABS: Phencyclidine Screen,Urine Negative ng/ml (<25)
== END ==
PROVIDERS: PCP Emergency Medicine; Visit Provider Emergency Medicine
DX: Z79.899 Other long term (current) drug therapy (principal)
CPT/HCPCS: 80305

== ENCOUNTER → 2023-06-07 23:27 | Outpatient (CLI) | payer OTHER, SELFPAY ==
[2023-06-07 22:51] LABS: Amphetamine/Metha Screen,Urine Negative ng/ml (<1000)
[2023-06-07 22:52] LABS: Benzodiazepines Screen,Urine Negative ng/ml (<200)
[2023-06-07 22:53] LABS: Barbiturates Screen,Urine Negative ng/ml (<200)
[2023-06-07 22:54] LABS: Cocaine Screen,Urine Negative ng/ml (<300)
[2023-06-07 22:55] LABS: Cannabinoid Screen,Urine Negative ng/ml (<50)
[2023-06-07 22:59] LABS: Opiate Screen,Urine Negative ng/ml (<300)
[2023-06-07 23:00] LABS: Methadone Screen,Urine Negative ng/ml (<300)
[2023-06-07 23:01] LABS: Phencyclidine Screen,Urine Negative ng/ml (<25)
== END ==
PROVIDERS: PCP Emergency Medicine; Visit Provider Emergency Medicine
DX: F41.9 Anxiety disorder, unspecified (principal)
CPT/HCPCS: 80305

== ENCOUNTER → 2023-07-06 09:38 | Outpatient (CLI) | payer OTHER, SELFPAY ==
--- NOTE | 2023-07-06 09:39 | MR_ITS ---
APPROVED REPORT Superintendent Power: CLINICAL INDICATION Syncope, increased LV wall thickness on TTE TECHNIQUE Image Acquisition: Cardiac magnetic resonance (CMR) was performed on Siemens Espree MRI 1.5T scanner. Software platform sequences were performed using the Siemens [employer] MR B19 platform. A set of three-plane, low-resolution, large [id number] localizers were initially acquired. Then axial, coronal, sagittal TrueFISP, as well as axial HASTE images, were obtained. These were followed by gated TrueFISP breathold cinematic sequences obtained in the short axis with 8 mm slices and 2 mm gaps, 2-chamber (vertical long axis), 3-chamber, 4-chamber (horizontal long axis). A bolus of contrast was injected intravenously with first-pass sequences obtained in the short axis and four-chamber planes. After approximately 10 minutes, a TI steamer blocker sequence was performed to determine the optimal TI time. Using the optimized TI time, delayed contrast enhancement segmented inversion???recovery TurboFLASH sequences were obtained in the short axis, 2-chamber, 3-chamber, and 4-chamber projections. 2D-velocity phase mapping was performed. Functional parameters were calculated by offline analysis on an independent workstation ([employer], [email or web address]). Contrast: ProHance??? (Gadoteridol) FINDINGS MORPHOLOGY AND FUNCTION Left ventricle: The left ventricle is normal in size. The indexed left ventricular end-diastolic volume (LVEDVi) is 46 ml/m2 (reference range 57-105 ml/m2 in males, 56-96 ml/m2 in females). Normal left ventricular systolic function is present. There is normal left ventricular wall thickness (maximum LV wall thickness is 0.96 cm). There are no regional wall motion abnormalities noted. LVEF is calculated at 63.4% (reference range 57-77%). Right ventricle: The right ventricle is normal in size. The indexed right ventricular end-diastolic volume (RVEDVi) is 57.9 ml/m2 (reference range 61-121 ml/m2 in males, 48-112 ml/m2 in females). Normal right ventricular systolic function is present. RVEF is calculated at 53.2 % (reference range 52-72% in males, 51-71% in females). Atria: The left atrium is normal in size. The maximum indexed left atrial volume is 14 ml/m2 (reference range 26-52 ml/m2 in males, 27-53 ml/m2 in females). The right atrium is normal in size. The maximum indexed right atrial volume is 18 ml/m2 (reference range 18-90 ml/m2). Aorta: The diameter of the aortic annulus is normal, measuring 23 mm (coronal view reference range 21-30 mm in males, 19-27 mm in females). The diameter of the aortic sinus is normal, measuring 30 mm (coronal view reference range 25-42 mm in males, 24-36 mm in females). The diameter of the sinotubular junction is normal, measuring 27 mm (coronal view reference range 18-32 mm in males, 18-28 mm in females). The diameters of the ascending and descending thoracic aorta are normal. Main pulmonary artery: The main pulmonary artery diameter is normal. Pericardium: The pericardial thickness is normal. The pericardial thickness measures 2.8 cm (normal < 4.0 cm). There is no pericardial effusion. VALVES The valvular morphologies in the visualized sequences appear normal. There is no significant valvular stenosis or regurgitation of the mitral, aortic, tricuspid, or pulmonic valve noted visually. Systolic anterior motion of the mitral valve is not visualized. Ratio of pulmonary to systemic flow, Qp:Qs ratio = 1.35 (normal < or = 1.2), demonstrating possible presence of shunt. TISSUE CHARACTERIZATION Resting Perfusion: Normal myocardial blood flow at rest. No evidence of resting hypoperfusion. Myocardial Fibrosis and/or edema: Normal gadolinium kinetics are present. No evidence of late gadolinium enhancement is n
== END ==
PROVIDERS: PCP Emergency Medicine; Visit Provider Internal Medicine
DX: I42.1 Obstructive hypertrophic cardiomyopathy (principal); I51.7 Cardiomegaly; R00.2 Palpitations; R55 Syncope and collapse
CPT/HCPCS: 75561; A9576

== ENCOUNTER → 2023-08-02 18:26 | Outpatient (CLI) | payer OTHER, SELFPAY ==
[2023-08-02 17:58] LABS: Amphetamine/Metha Screen,Urine Negative ng/ml (<1000)
[2023-08-02 17:59] LABS: Cannabinoid Screen,Urine Negative ng/ml (<50)
[2023-08-02 18:00] LABS: Barbiturates Screen,Urine Positive ng/ml (<200)
[2023-08-02 18:01] LABS: Benzodiazepines Screen,Urine Negative ng/ml (<200); Opiate Screen,Urine Negative ng/ml (<300)
[2023-08-02 18:02] LABS: Cocaine Screen,Urine Negative ng/ml (<300)
[2023-08-02 18:03] LABS: Methadone Screen,Urine Negative ng/ml (<300)
[2023-08-02 18:05] LABS: Phencyclidine Screen,Urine Negative ng/ml (<25)
== END ==
PROVIDERS: PCP Nurse Practitioner Family; Visit Provider Nurse Practitioner Family
DX: Z79.899 Other long term (current) drug therapy (principal); G62.9 Polyneuropathy, unspecified
CPT/HCPCS: 80305

== ENCOUNTER 2023-09-26 20:00 | Outpatient (CLI) | payer OTHER, SELFPAY ==
[2023-09-26 19:05] LABS: Basophils # 0.1 K/mm3 (0-0.2); Basophils % 0.5 % (0.1-2.0); Eosinophils # 0.3 K/mm3 (0.0-0.4); Eosinophils % 2.4 % (0.1-12.0); Hematocrit 41.1 % (37.0-47.0); Hemoglobin 13.6 g/dL (12.2-16.2); Lymphocytes # 2.8 K/mm3 (0.7-4.5); Lymphocytes % 19.5 % (10-50); Mean Corpuscular HGB Conc 33.2 g/dL (31.8-35.4); Mean Corpuscular Volume 93.6 fl (81-99); Mean Platelet Volume 9.9 fl (7.4-10.4); Monocytes # 0.5 K/mm3 (0.1-1.0); Monocytes % 3.5 % (1.7-9.3); Neutrophils # 10.4 K/mm3 (1.8-7.8); Neutrophils % 74.1 % (37.0-80.0); Platelet Count 358 K/mm3 (142-424); Red Cell Distribution Width 13.7 % (11.5-17.5); White Blood Count 14.1 K/mm3 (4.8-10.8)
[2023-09-26 19:33] LABS: Chloride 105 mmol/L (98-107); Potassium 3.6 mmoL/L (3.5-5.1); Sodium 138 mmol/L (136-145)
[2023-09-26 19:35] LABS: Alanine Aminotransferase 27 U/L (12-78); Alkaline Phosphatase 94 U/L (38-126); Anion Gap 12.6 mEq/L (5-15); Aspartate Amino Transferase 27 U/L (14-36); Bilirubin,Total 0.6 mg/dl (0.2-1.3); Blood Urea Nitrogen 11 mg/dl (7-17); Carbon Dioxide 24 mmol/L (22.0-30.0); Estimated Glomerular Filt Rate 68 ml/min (>60); GFR (African American) 82 ML/MIN (>60)
[2023-09-26 19:36] LABS: Albumin Level 4.3 g/dl (3.5-5.0); Albumin/Globulin Ratio 1.4 (1.1-1.8); Calcium 9.5 mg/dl (8.4-10.2); Chol/HDL Ratio 5.3 (1-3.5); Cholesterol 200 mg/dl (140-200); Globulin 3.1 g/dL (1.3-3.2); Glucose 86 mg/dl (74-100); HDL Cholesterol 38 mg/dl (40-60); Iron 64 ug/dL (37-170); Total Protein,Serum 7.4 g/dl (6.3-8.2); Triglycerides 128 mg/dl (30-150); VLDL Cholesterol 26 mg/dL (0-40)
[2023-09-26 19:47] LABS: Direct LDL Cholesterol 127.52 mg/dL (100-129); Total Iron Binding Capacity 309 ug/dL (265-497)
[2023-09-26 19:53] LABS: 25-OH Vitamin D, Total 27.2 ng/mL (30-100)
[2023-09-26 20:10] LABS: Ferritin 120 ng/ml (6.24-137)
[2023-09-26 20:49] LABS: Thyroid Stimulating Hormone 3.07 uIU/mL (0.465-4.68)
[2023-09-26 21:24] LABS: Vitamin B12 201 pg/mL (239-931)
[2023-09-26 21:32] LABS: Folate 2.86 ng/mL
== END 2023-09-26 23:59 ==
LOC: LAB.DROPOF 20:01
PROVIDERS: PCP Physician Assistant; Visit Provider Physician Assistant
DX: R25.1 Tremor, unspecified (principal); L73.2 Hidradenitis suppurativa; E55.9 Vitamin D deficiency, unspecified; E53.8 Deficiency of other specified B group vitamins; R55 Syncope and collapse; Z79.899 Other long term (current) drug therapy
CPT/HCPCS: 80053; 80061; 82306; 82607; 82728; 82746; 83540; 83550; 84443; 85025

== ENCOUNTER 2023-11-01 19:54 | Inpatient (IN) | payer OTHER, SELFPAY ==
[2023-11-01 20:05] VITALS: BP 112/60; PULSE 73; RESP 16; TEMP 36.8; O2SAT 99; BMI 38.6
[2023-11-01 20:09] VITALS: BP 128/82; PULSE 74; RESP 18; TEMP 36.8; O2SAT 98
--- NOTE | 2023-11-01 20:25 | PC.NURSE ---
discussed plan of care with patient. patient agrees
--- NOTE | 2023-11-01 20:44 | CT_ITS ---
PROCEDURE INFORMATION: Exam: CT Abdomen And Pelvis Without Contrast Exam date and time: 11/01/2023 10:17 PM Age: 43 years old Clinical indication: Abdominal pain; Additional info: Abd pain TECHNIQUE: Imaging protocol: Computed tomography of the abdomen and pelvis without contrast. Radiation optimization: All CT scans at this facility use at least one of these dose optimization techniques: automated exposure control; mA and/or kV adjustment per patient size (includes targeted exams where dose is matched to clinical indication); or iterative reconstruction. COMPARISON: MR CARDIAC WO/W CON 07/06/2023 9:54 AM FINDINGS: Lungs: Lung bases are clear. Liver: Normal. No mass. Gallbladder and bile ducts: Status post cholecystectomy. No evident bile duct dilatation allowing for prior cholecystectomy. Pancreas: Normal. No ductal dilation. Spleen: Normal. No splenomegaly. Adrenal glands: Normal. No mass. Kidneys and ureters: Normal. No hydronephrosis. Stomach and bowel: Unremarkable. No obstruction. No mucosal thickening. Appendix: Appendix is normal. No evidence of appendicitis. Intraperitoneal space: Unremarkable. No free air. No significant fluid collection. Vasculature: Unremarkable. No abdominal aortic aneurysm. Lymph nodes: Unremarkable. No enlarged lymph nodes. Urinary bladder: Unremarkable as visualized. Reproductive: Hysterectomy. Bones/joints: Unremarkable. No acute fracture. Soft tissues: Unremarkable. IMPRESSION: No acute abnormalities of the abdomen and pelvis. Nonemergent findings as above.
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
--- NOTE | 2023-11-01 21:35 | PC.NURSE ---
was notified of elevated creatinine per lab. dr genao notified. patient notified of lab work concern.
[2023-11-01 21:58] LABS: Basophils # 0.1 K/mm3 (0-0.2); Basophils % 0.4 % (0.1-2.0); Eosinophils # 0.3 K/mm3 (0.0-0.4); Hematocrit 39.8 % (37.0-47.0); Hemoglobin 12.8 g/dL (12.2-16.2); Lymphocytes # 1.6 K/mm3 (0.7-4.5); Lymphocytes % 9.2 % (10-50); Mean Corpuscular HGB Conc 32.2 g/dL (31.8-35.4); Mean Corpuscular Hemoglobin 31.6 pg (27.0-31.2); Mean Corpuscular Volume 98.3 fl (81-99); Mean Platelet Volume 9.6 fl (7.4-10.4); Monocytes # 0.7 K/mm3 (0.1-1.0); Monocytes % 4.2 % (1.7-9.3); Neutrophils # 14.5 K/mm3 (1.8-7.8); Neutrophils % 84.3 % (37.0-80.0); Platelet Count 349 K/mm3 (142-424); Red Blood Count 4.05 M/mm3 (4.20-5.40); Red Cell Distribution Width 13.6 % (11.5-17.5); White Blood Count 17.2 K/mm3 (4.8-10.8)
[2023-11-01 22:01] LABS: MANUAL DIFFERENTIAL MANUAL DIFFERENTIAL (MANUAL DIFF)
[2023-11-01] MEDS: ONDANSETRON 4MG/2ML VIAL 4 MG IV (22:01)
[2023-11-01] MEDS: KETOROLAC 30MG/ML VIAL 30 MG IV (22:01)
[2023-11-01] MEDS: LACTATED RINGERS 1000ML 500 ML 999 ML IV ×2 (22:01→23:54)
[2023-11-01 22:03] LABS: Coronavirus 19, PCR Not Detected (NotDetected); Influenza A, PCR Not Detected (NotDetected); Influenza B, PCR Not Detected (NotDetected)
[2023-11-01 22:03] LABS: Alanine Aminotransferase 16 U/L (12-78); Albumin Level 4.5 g/dl (3.5-5.0); Albumin/Globulin Ratio 1.4 (1.1-1.8); Alkaline Phosphatase 146 U/L (38-126); Aspartate Amino Transferase 53 U/L (14-36); Bilirubin,Total 0.8 mg/dl (0.2-1.3); Blood Urea Nitrogen 62 mg/dl (7-17); Calcium 9.7 mg/dl (8.4-10.2); Carbon Dioxide 21 mmol/L (22.0-30.0); Chloride 106 mmol/L (98-107); Creatinine Clearance Estimated 23 mL/min (50-200); Estimated Glomerular Filt Rate 10 ml/min (>60); GFR (African American) 12 ML/MIN (>60); Globulin 3.2 g/dL (1.3-3.2); Glucose 99 mg/dl (74-100); Lipase 312 U/L (23-300); Sodium 136 mmol/L (136-145); Total Protein,Serum 7.7 g/dl (6.3-8.2)
[2023-11-01 22:33] LABS: Eosinophils % 3 % (0-3); Lymphocytes % 11 % (10-50); Macrocytosis 1+; Monocytes % 3 % (2-9); Neutrophils % 83 % (42-76); Platelet Estimate Normal; Total Cells Counted 100
[2023-11-01 23:14] LABS: Lactate Venous 2.8 mmol/L (0.4-2.0)
--- NOTE | 2023-11-01 23:25 | PC.NURSE ---
[facility] facilities
--- NOTE | 2023-11-01 23:43 | PC.NURSE ---
Spoke to [facility] transfer center and updated that patient is wanting to AMA at this time.
[2023-11-01] MEDS: LACTATED RINGERS 1000ML 1,000 ML 999 ML IV (23:50)
--- NOTE | 2023-11-02 00:11 | PC.NURSE ---
Dr. Solorzano discussed patient's care at length with patient and patient's parents. Patient had expressed desire to leave against medical advice and had spoke with Dr. Traylor and hospitalist previously. Ultimately patient and family agree that patient would stay for admission here.
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
[2023-11-02 01:06] VITALS: BP 105/70; PULSE 69; RESP 15; TEMP 36.8; O2SAT 95
[2023-11-02] MEDS: ONDANSETRON 4MG/2ML VIAL 4 MG IV ×2 (02:28→17:50)
[2023-11-02] MEDS: 0.9 % SODIUM CHLORIDE 1000ML 1,000 ML 125 ML IV ×2 (03:00→11:49)
--- NOTE | 2023-11-02 03:08 | PC.NURSE ---
Patient arrived to unit via wheelchair from ED at 0102. Patient is alert and orient X3. Delayed response with some admission questions per patient baseline. Patient lives with her mother. Mother is able to answer questions that have been unanswered per patient. Poured Pipe Maker oriented patient to room, educated patient chemist water purification light, bed controller and tv remote with a voice of understanding. Patient denies pain upon arrival to unit. Patient noted with a IV to RFA with LR infusing. IV site noted with no s/sx of infiltration. Flushed with ease. Patient laying in bed with proper footwear in place, bed in lowest position with call light in reach and bed alarm on.
[2023-11-02 04:00] VITALS: BP 99/56; PULSE 65; RESP 18; TEMP 36.8; O2SAT 100; BMI 39.7
[2023-11-02 08:00] VITALS: BP 88/41; PULSE 58; RESP 22; TEMP 36.5; O2SAT 95
[2023-11-02 08:11] LABS: Basophils # 0.1 K/mm3 (0-0.2); Basophils % 0.4 % (0.1-2.0); Eosinophils # 0.7 K/mm3 (0.0-0.4); Hematocrit 35.7 % (37.0-47.0); Hemoglobin 11.6 g/dL (12.2-16.2); Lymphocytes # 1.4 K/mm3 (0.7-4.5); Lymphocytes % 10.3 % (10-50); Mean Corpuscular HGB Conc 32.5 g/dL (31.8-35.4); Mean Corpuscular Hemoglobin 31.5 pg (27.0-31.2); Mean Platelet Volume 9.9 fl (7.4-10.4); Monocytes # 0.6 K/mm3 (0.1-1.0); Monocytes % 4.7 % (1.7-9.3); Neutrophils # 10.8 K/mm3 (1.8-7.8); Neutrophils % 79.6 % (37.0-80.0); Platelet Count 318 K/mm3 (142-424); Red Blood Count 3.68 M/mm3 (4.20-5.40); Red Cell Distribution Width 13.7 % (11.5-17.5); White Blood Count 13.5 K/mm3 (4.8-10.8)
[2023-11-02 08:17] LABS: Alanine Aminotransferase 17 U/L (12-78); Albumin Level 3.5 g/dl (3.5-5.0); Albumin/Globulin Ratio 1.2 (1.1-1.8); Alkaline Phosphatase 125 U/L (38-126); Anion Gap 11.5 mEq/L (5-15); Aspartate Amino Transferase 27 U/L (14-36); Bilirubin,Total 0.6 mg/dl (0.2-1.3); Blood Urea Nitrogen 57 mg/dl (7-17); Calcium 8.9 mg/dl (8.4-10.2); Carbon Dioxide 19 mmol/L (22.0-30.0); Chloride 110 mmol/L (98-107); Creatinine Clearance Estimated 30 mL/min (50-200); Estimated Glomerular Filt Rate 12 ml/min (>60); GFR (African American) 15 ML/MIN (>60); Globulin 2.9 g/dL (1.3-3.2); Glucose 113 mg/dl (74-100); Magnesium 2.5 mg/dl (1.6-2.3); Potassium 3.5 mmoL/L (3.5-5.1); Sodium 137 mmol/L (136-145); Total Protein,Serum 6.4 g/dl (6.3-8.2)
--- NOTE | 2023-11-02 08:52 | HMH.PHAINT1 ---
Pharmacy Intervention Comments: Confirmed all home medications using external fill history and spoke with patient at bedside to clarify doses.
[2023-11-02] MEDS: PANTOPRAZOLE 40MG TABLET 40 MG PO (08:55)
[2023-11-02] MEDS: MORPHINE 2MG/ML SYRINGE 2 MG IV (08:55)
[2023-11-02] MEDS: ENOXAPARIN 30MG/0.3ML SYRINGE 30 MG SQ ×2 (08:55→21:33)
[2023-11-02 16:00] VITALS: BP 88/39; PULSE 61; RESP 20; TEMP 36.7; O2SAT 99
--- NOTE | 2023-11-02 18:01 | PC.NURSE ---
AOX4, PT HAS REQUIRED REMINDING TO TURN IN THE BED. SHE HAS NOT REQUIRED O2 SUPPORT. MEDICATED FOR PAIN AND N/V THIS SHIFT. DECREASED APPETITE THIS SHIFT.
[2023-11-02 20:00] VITALS: BP 94/62; PULSE 101; RESP 16; TEMP 36.8; O2SAT 98
[2023-11-02] MEDS: QUETIAPINE 100MG TABLET 100 MG PO (21:33)
[2023-11-02] MEDS: PATIENT'S OWN HOME MEDICATION (Topiramate 50 mg tablet) 50 EACH PO (21:34)
[2023-11-03] MEDS: 0.9 % SODIUM CHLORIDE 1000ML 1,000 ML 125 ML IV ×3 (02:32→21:12)
--- NOTE | 2023-11-03 03:45 | PC.NURSE ---
Patient is alert and orient X3. Pleasant and cooperative with staff. Denies pain this far in shift. No N/V this far in shift. Patient is resting well in bed with eyes closed. IV fluids infusing. Bed in lowest position with call light in reach.
[2023-11-03 04:00] VITALS: BP 97/56; PULSE 64; RESP 18; TEMP 36.8; O2SAT 96; BMI 39.9
[2023-11-03 07:45] VITALS: BP 96/52; PULSE 60; RESP 18; O2SAT 95
[2023-11-03] MEDS: ENOXAPARIN 30MG/0.3ML SYRINGE 30 MG SQ ×2 (08:17→21:09)
[2023-11-03] MEDS: LEVOTHYROXINE 125MCG (0.125MG) TAB 125 MCG PO (08:17)
[2023-11-03] MEDS: PANTOPRAZOLE 40MG TABLET 40 MG PO (08:17)
[2023-11-03] MEDS: NYSTATIN CREAM 30GM/TUBE TP ×3 (08:18→21:09)
[2023-11-03 09:14] LABS: Basophils % 0.2 % (0.1-2.0); Eosinophils # 0.7 K/mm3 (0.0-0.4); Eosinophils % 6.9 % (0.1-12.0); Hematocrit 33.2 % (37.0-47.0); Hemoglobin 10.9 g/dL (12.2-16.2); Lymphocytes # 1.2 K/mm3 (0.7-4.5); Lymphocytes % 12.9 % (10-50); Mean Corpuscular HGB Conc 32.9 g/dL (31.8-35.4); Mean Corpuscular Hemoglobin 31.9 pg (27.0-31.2); Mean Corpuscular Volume 96.9 fl (81-99); Mean Platelet Volume 9.1 fl (7.4-10.4); Monocytes # 0.5 K/mm3 (0.1-1.0); Monocytes % 5.1 % (1.7-9.3); Neutrophils # 7.2 K/mm3 (1.8-7.8); Platelet Count 271 K/mm3 (142-424); Red Blood Count 3.43 M/mm3 (4.20-5.40); Red Cell Distribution Width 13.6 % (11.5-17.5); White Blood Count 9.6 K/mm3 (4.8-10.8)
[2023-11-03 09:26] LABS: Anion Gap 6.9 mEq/L (5-15); Blood Urea Nitrogen 32 mg/dl (7-17); Calcium 8.7 mg/dl (8.4-10.2); Carbon Dioxide 21 mmol/L (22.0-30.0); Chloride 115 mmol/L (98-107); Creatinine Clearance Estimated 70 mL/min (50-200); Estimated Glomerular Filt Rate 33 ml/min (>60); GFR (African American) 39 ML/MIN (>60); Glucose 121 mg/dl (74-100); Potassium 3.9 mmoL/L (3.5-5.1); Sodium 139 mmol/L (136-145)
--- NOTE | 2023-11-03 09:51 | HMH.OTEV ---
OT Inpatient Evaluation Rehab OT IP Evaluation Start: 11/03/23 08:49 Freq: ONCE Status: Active Protocol: Document 11/03/23 09:47 RONEN (Rec: 11/03/23 09:50 [facility] [id number]) Rehab OT IP Assessment Subjective History Pt oriented x 3 on arrival. Pt agreeable to engage in therapy evaluation. Pt admitted on 11/02/23 due to ARF and abdominal pain. History and physical report: This is a 43-year-old obese female with past medical history significant for anxiety, depression, bipolar disorder, migraine headaches, HOCM, COPD, gout, Parkinson's, presents today for evaluation concerning nausea vomiting, diarrhea and abdominal pain. She states that her abdominal pain and nausea have both been present over the past 2 to 3 weeks. Vomiting and diarrhea began over this past week. She denies being around any sick contacts. Denies any chest pain or shortness of breath. Denies any blood in her vomit or diarrhea. Has not had any urinary symptoms. No further complaints. Does report that she has an appointment with her PCP on tomorrow for her symptoms. Admitted for further treatment and management Subjective I live with my mom. Prior to being in the hospital , pt lives with her mother in a ground floor apartment with no steps. Pt also claims to be independent with all ADLS and IADLs. Pt normally does not use a walker, but has had to use one in the past due to weakness. Objective Patient Orientation Person,Place,Birthday Right Upper Extremity Gross ROM WFL Left Upper Extremity Gross ROM WFL Bed Mobility bed mobility-scooting,bed mobility - supine/sit Assist Level Supervision/Stand by Transfer Training Sit/Stand Transfer Assist Level Supervision/Stand by Lower Body Dressing Ability Standby Assistance Rehab OT IP prob,goals,plan Problems Date of Evaluation: 11/03/23 Rehab Potential Rehab Potential Innapropriate for Skilled Therapy Discharge Plan OT Discharge Plan At this time, pt appears to be at her baseline with functional transfers and ADL independence. Pt can return home with her family once she is medically stable per physician. Eval Complexity Eval Charge Codes 30466 - Low Complexity PHYSICIAN CERTIFICATION: I certify the specified therapy services for Concetta Ethel Douglas are required, authorized, and reviewed every 30 days.
--- NOTE | 2023-11-03 10:16 | HMH.PTEV ---
Physical Therapy Evaluation Rehab PT IP Evaluation Start: 11/03/23 08:49 Freq: ONCE Status: Active Protocol: Document 11/03/23 10:09 ESTEBAN (Rec: 11/03/23 10:16 PHOVANITA [id number]) Subjective/History History History The patient is a 43 yof that presents to [facility] with ARF and abdominal pain with N and V. The patient's PMH is remarkable for anxiety, depression, BPD, migraines, HOCM, COPD, gout and parkinsons. Subjective Subjective The patient is agreeable to PT and reports no complaints of pain at this time. The patient reports that she lives with her mother in a ground level apartment, with no stairs to enter. The patient reports that she is fully independent with all ADLs and self-care prior to admission. She recently used a walker for a few weeks prior to admission because she had felt week and did not think her mother would be able to help her if she fell. New diagnosis of cancer in past 12 No months? Rehab PT IP Eval Objective Appearance Patient Behavior Appropriate,Cooperative Patient Orientation Person,Place,Time Difficulty following instructions none Speech Pattern Clear,Appropriate Ambulation Patient Able to Ambulate Yes Ambulation Observation IP General Gait Pattern Observation No Deviations/Normal Ambulation Distance (feet) 25 Ambulation Ability Contact Guard/Hand Hold Balance Ability to Arise Able, w/o using arms Sitting Balance Steady, safe Standing Balance Narrow stance w/o support Dynamic Sitting Balance Ability Normal Dynamic Standing Balance Ability Normal Transfers Bed Transfer Ability Supervision/Stand by Sit to Stand Bed Transfer Ability Supervision/Stand by Rehab PT IP prob,goals,plan Problems Date of Evaluation: 11/03/23 Discharge Plan PT Discharge Plan The patient presents for initial evaluation and presents at her basline level for transfers and mobility. Skilled PT is not indicated for this patient. The patient may be most appropriate for discharge to home upon discharge from the hospital. Eval Complexity Eval Charge Codes 07754 - High Complexity PHYSICIAN CERTIFICATION: I certify the specified therapy services for Concetta Douglas are required, authorized, and reviewed every 30 days.
[2023-11-03] MEDS: FLUTICASONE/UMECLIDIN/VILANTER 100/62.5/25MCG INHALER 1 PUFF IH (11:11)
[2023-11-03 11:12] VITALS: O2SAT 97
[2023-11-03 11:19] LABS: Microscopic, Urine URINE MICROSCOPIC (MICROSCOPIC)
[2023-11-03 12:41] LABS: Appearance,Urine CLEAR (Clear); Bilirubin,Urine Negative (Negative); Blood, Urine Negative (Negative); Color,Urine YELLOW (Yellow); Glucose,Urine (UA) Negative (Negative); Ketones,Urine Negative (Negative); Leukocyte Esterase,Urine Negative (Negative); Nitrate,Urine Negative (Negative); Protein,Urine Negative (Negative); Specific Gravity, Urine 1.025 (1.005-1.030); Urobilinogen,Urine 0.2 EU/dl (0.2)
[2023-11-03 13:09] LABS: Bacteria,Urine Trace /lpf
[2023-11-03 13:10] LABS: Hyaline Casts,Urine Occasional #/lpf (0)
[2023-11-03 15:38] VITALS: BP 113/84; PULSE 62; RESP 18; TEMP 36.9; O2SAT 99
--- NOTE | 2023-11-03 17:47 | PC.NURSE ---
no acute changes this shift. pt requires prompting to turn in bed. staff has assisted patient to chair multiple times this shift however patient returns to bed within a few minutes. pt has been educated on need to get out of bed and turn in bed.
[2023-11-03 20:00] VITALS: BP 121/71; PULSE 65; RESP 18; TEMP 36.9; O2SAT 99
[2023-11-03] MEDS: TOPIRAMATE 100MG TABLET 50 MG PO (21:09)
[2023-11-03] MEDS: QUETIAPINE 100MG TABLET 100 MG PO (21:10)
[2023-11-04] MEDS: 0.9 % SODIUM CHLORIDE 1000ML 1,000 ML 125 ML IV ×2 (02:06→09:02)
[2023-11-04 04:00] VITALS: BP 119/65; PULSE 66; RESP 16; TEMP 36.8; O2SAT 96; BMI 40.0
[2023-11-04] MEDS: FLUTICASONE/UMECLIDIN/VILANTER 100/62.5/25MCG INHALER 1 PUFF IH (06:33)
[2023-11-04] MEDS: LEVOTHYROXINE 125MCG (0.125MG) TAB 125 MCG PO (06:49)
--- NOTE | 2023-11-04 06:50 | PC.NURSE ---
Patient has rested well this shift with no acute changes. Vitals have remained stable.
[2023-11-04 07:14] LABS: Basophils % 0.3 % (0.1-2.0); Eosinophils # 0.6 K/mm3 (0.0-0.4); Eosinophils % 5.6 % (0.1-12.0); Hematocrit 32.4 % (37.0-47.0); Hemoglobin 10.2 g/dL (12.2-16.2); Lymphocytes # 1.8 K/mm3 (0.7-4.5); Mean Corpuscular HGB Conc 31.5 g/dL (31.8-35.4); Mean Corpuscular Hemoglobin 30.9 pg (27.0-31.2); Mean Platelet Volume 9.5 fl (7.4-10.4); Monocytes # 0.5 K/mm3 (0.1-1.0); Monocytes % 5.2 % (1.7-9.3); Neutrophils # 7.3 K/mm3 (1.8-7.8); Neutrophils % 70.8 % (37.0-80.0); Platelet Count 266 K/mm3 (142-424); Red Cell Distribution Width 13.6 % (11.5-17.5); White Blood Count 10.2 K/mm3 (4.8-10.8)
[2023-11-04 07:21] LABS: Anion Gap 6.8 mEq/L (5-15); Blood Urea Nitrogen 19 mg/dl (7-17); Calcium 8.7 mg/dl (8.4-10.2); Carbon Dioxide 21 mmol/L (22.0-30.0); Chloride 114 mmol/L (98-107); Creatinine Clearance Estimated 108 mL/min (50-200); Estimated Glomerular Filt Rate 54 ml/min (>60); GFR (African American) 65 ML/MIN (>60); Glucose 98 mg/dl (74-100); Potassium 3.8 mmoL/L (3.5-5.1); Sodium 138 mmol/L (136-145)
[2023-11-04 08:00] VITALS: BP 105/58; PULSE 65; RESP 18; TEMP 36.8; O2SAT 97
[2023-11-04] MEDS: NYSTATIN CREAM 30GM/TUBE TP (09:01)
[2023-11-04] MEDS: ENOXAPARIN 30MG/0.3ML SYRINGE 30 MG SQ (09:01)
[2023-11-04] MEDS: PANTOPRAZOLE 40MG TABLET 40 MG PO (09:01)
--- NOTE | 2023-11-04 10:33 | EXP.DC.SUM ---
General Admission date:: 11/02/23 Discharge date: 11/04/23 HPI HPI HPI: This is a 43-year-old obese female with past medical history significant for anxiety, depression, bipolar disorder, migraine headaches, HOCM, COPD, gout, Parkinson's, presents today for evaluation concerning nausea vomiting, diarrhea and abdominal pain. She states that her abdominal pain and nausea have both been present over the past 2 to 3 weeks. Vomiting and diarrhea began over this past week. She denies being around any sick contacts. Denies any chest pain or shortness of breath. Denies any blood in her vomit or diarrhea. Has not had any urinary symptoms. No further complaints. Does report that she has an appointment with her PCP on tomorrow for her symptoms. Admitted for further treatment and management Hospital Course Hospital Course Hospital Course: Patient was seen and evaluated at the bedside on the day of discharge. Patient wishes to be discharged. All patient questions were answered and patient was given time to ask questions. Patient was discharged in stable condition. Patient understands that she can return to ER in case of any sudden changes in health. Total time spent on DC - 38 mins 43-year-old obese female with past medical history significant for anxiety, depression, bipolar disorder, migraine headaches, HOCM, COPD, gout, Parkinson's, presents today for evaluation concerning nausea vomiting, diarrhea and abdominal pain. WBC of 17.2. Lactic acid 2.8. BUN 62 creatinine 4.9, significantly elevated from patient's visit on 09/26/2023 at 0.9. GFR of 10. AST 53, alkaline phosphatase 146. Lipase 312. CT imaging do not show any acute disease processes. On reassessment the patient remains hemodynamically stable in no acute distress. Given that we feel that this is likely prerenal in the setting of vomiting and poor oral intake with no indications for emergent dialysis since the patient is making good urine and has no significant electrolyte derangements. Discussed with ED for admission: -HAILE likely prerenal secondary to intractable N/V: - resolved -COPD: stable. -HTN -tobacco abuse on nicotine patch Obesity with comorbidity: encouraged to continue to lose weight. lovenox for DVT ppx. on protonix Full code Exam Data for Last 24 hours Vital signs and Labs for Last 24 Hours: Temp Pulse Resp BP Pulse Ox O2 Del Method 98.2 F 65 18 105/58 L 97 Room Air 11/04/23 08:00 03/15/24 08:00 11/04/23 08:00 11/04/23 08:00 11/04/23 08:00 11/04/23 09:00 Laboratory Results - last 24 hr 11/01/23 : Urine Color Yellow, Urine Appearance Clear, Urine pH 6.0, Ur Specific Conrad 1.025, Urine Protein Negative, Urine Glucose (UA) Negative, Urine Ketones Negative, Urine Blood Negative, Urine Nitrate Negative, Urine Bilirubin Negative, Urine Urobilinogen 0.2, Ur Leukocyte Esterase Negative, Urine RBC None, Urine WBC None, Ur Squamous Epith Cells 10-20, Urine Bacteria Trace, Hyaline Casts Occasional 11/04/23 06:00: WBC 10.2, RBC 3.30 L, Hgb 10.2 L, Hct 32.4 L, MCV 98.0, MCH 30.9, MCHC 31.5 L, RDW 13.6, Plt Count 266, MPV 9.5, Neut % (Auto) 70.8, Lymph % (Auto) 18.0, Jessamine % (Auto) 5.2, Eos % (Auto) 5.6, Baso % (Auto) 0.3, Neut # (Auto) 7.3, Lymph # (Auto) 1.8, Jessamine # (Auto) 0.5, Eos # (Auto) 0.6 H, Baso # (Auto) 0.0, Sodium 138, Potassium 3.8, Chloride 114 H, Carbon Dioxide 21 L, Anion Gap 6.8, BUN 19 H D, Creatinine 1.10 H D, Estimated Creat Clear 108, Estimated GFR 54 L, Est GFR ( Amer) 65 D, Glucose 98, Calcium 8.7 I & O for Last 24 hours: Intake & Output 11/01/23 11/02/23 11/03/23 11/04/23 23:59 23:59 23:59 23:59 Intake Total 2562 / 3308 5013 / 5013 Output Total 0 / 0 0 / 0 0 / 0 Balance 2562 / 3307 5013 / 5013 Weight 102.058 kg 105.551 kg 106.141 kg 106.413 kg Constitutional Constitutional: no acute distress *Routine HEENT Exam Head: Present normocephalic Eye: Present EOMI and PERRL ENT: Present mucous membranes moist *Routine Neck Exam Neck: Present supple; Absent lymphadenopathy *Routine Respiratory Exam Respiratory: Present CTA bilaterally *Routine Cardiovascular Exam Cardiovascular: Present RRR *Routine Abdominal Exam Abdominal: Present soft and normoactive bowel sounds; Absent tenderness *Routine Extremities Exam Extremities: Absent cyanosis, clubbing or edema *Routine Skin Exam Skin: Present warm; Absent rash *Routine Neurological Exam Neurological: Present alert and oriented X3 Results Data Completed and Pending Labs on day of discharge: Labs from last 24 hours 11/04/23 11/01/23 06:00 Unknown WBC 10.2 RBC 3.30 L Hgb 10.2 L Hct 32.4 L MCV 98.0 MCH 30.9 MCHC 31.5 L RDW 13.6 Plt Count 266 MPV 9.5 Neut % (Auto) 70.8 Lymph % (Auto) 18.0 Jessamine % (Auto) 5.2 Eos % (Auto) 5.6 Baso % (Auto) 0.3 Neut # (Auto) 7.3 Lymph # (Auto) 1.8 Jessamine # (Auto) 0.5 Eos # (Auto) 0.6 H Baso # (Auto) 0.0 Sodium 138 Potassium 3.8 Chloride 114 H Carbon Dioxide 21 L Anion Gap 6.8 BUN 19 H D Creatinine 1.10 H D Estimated Creat Clear 108 Estimated GFR 54 L Est GFR ( Amer) 65 D Glucose 98 Calcium 8.7 Urine Color Yellow Urine Appearance Clear Urine pH 6.0 Ur Specific Conrad 1.025 Urine Protein Negative Urine Glucose (UA) Negative Urine Ketones Negative Urine Blood Negative Urine Nitrate Negative Urine Bilirubin Negative Urine Urobilinogen 0.2 Ur Leukocyte Esterase Negative Urine RBC None Urine WBC None Ur Squamous Epith Cells 10-20 Urine Bacteria Trace Hyaline Casts Occasional DS: Diagnosis Discharge Diagnosis (1) HAILE (acute kidney injury): Status: Acute Code(s): N17.9 - Acute kidney failure, unspecified (2) Intractable nausea and vomiting: Status: Acute Code(s): R11.2 - Nausea with vomiting, unspecified (3) COPD (chronic obstructive pulmonary disease): Status: Acute Code(s): J44.9 - Chronic obstructive pulmonary disease, unspecified Qualifiers: COPD type: unspecified COPD Qualified Code(s): J44.9 - Chronic obstructive pulmonary disease, unspecified (4) HTN (hypertension): Status: Acute Code(s): I10 - Essential (primary) hypertension Qualifiers: Hypertension type: unspecified Qualified Code(s): I10 - Essential (primary) hypertension (5) Bipolar disorder: Status: Chronic Code(s): F31.9 - Bipolar disorder, unspecified Qualifiers: Active/Remission status: remission status unspecified Qualified Code(s): F31.9 - Bipolar disorder, unspecified Problem details: Active follow-up with psychiatrist in [facility], currently on lithium, Seroquel 100 mg daily. (6) Tobacco use: Status: Acute Code(s): Z72.0 - Tobacco use (7) Obesity, Class II, BMI 35-39.9: Status: Chronic Code(s): E66.9 - Obesity, unspecified Meds Home Medications and Allergies Home Medications Medication Instructions Recorded Confirmed Type ipratropium 0.5 mg-albuterol 3 mg 3 ml inhalation Q4-6H PRN 02/02/23 11/02/23 Rx (2.5 mg base)/3 mL nebulization shortness of breath or wheezing soln #180 mL budesonide-formoterol HFA 80 1 puff inhalation BID 02/22/23 11/02/23 History mcg-4.5 mcg/actuation aerosol inhaler (Symbicort) levothyroxine 125 mcg capsule 125 mcg PO DAILY 02/22/23 11/02/23 History lidocaine 5 % topical patch 1 patch topical DAILY 02/22/23 11/02/23 History fluticasone fur. 100 mcg-umeclid 1 inh inhalation DAILY 03/02/23 11/02/23 History 62.5 mcg-vilant 25 mcg inhalat.powder (Trelegy Ellipta) blood pressure monitor #1 ea 04/05/23 10/14/23 Rx ubrogepant 100 mg tablet (Ubrelvy) 100 mg PO ONCE PRN Migraine 08/02/23 11/02/23 History Headache lithium carbonate 300 mg 300 mg PO TID 08/30/23 11/02/23 History tablet,extended release carbidopa ER 25 mg-levodopa 100 mg 1 tab PO HS #30 tabs 09/26/23 11/02/23 Rx tablet,extended release nystatin 100,000 unit/gram topical 1 applic topical TID #30 grams 09/26/23 11/02/23 Rx cream spironolactone 25 mg tablet 25 mg PO DAILY #30 tabs 09/26/23 11/02/23 Rx (Aldactone) topiramate 50 mg tablet 50 mg PO HS 09/26/23 11/02/23 History ergocalciferol (vitamin D2) 1,250 1,250 mcg PO WEEKLY #5 caps 09/27/23 11/02/23 Rx mcg (50,000 unit) capsule (Vitamin D2) ondansetron 4 mg disintegrating 4 mg PO Q8H PRN nausea and 11/01/23 Rx tablet vomiting 4 days #12 tabs albuterol sulfate 90 mcg/actuation 2 puff inhalation Q8 PRN Shortness 11/02/23 11/02/23 History aerosol inhaler (Ventolin HFA) Of Breath Or Wheezing clindamycin phosphate 1 % topical 1 applic topical DAILY 11/02/23 11/02/23 History solution doxycycline monohydrate 100 mg 100 mg PO BIDWMEAL 11/02/23 11/02/23 History capsule gabapentin 400 mg capsule 400 mg PO TID PRN Pain 11/02/23 11/02/23 History lisinopril 10 1 tab PO DAILY 11/02/23 11/02/23 History mg-hydrochlorothiazide 12.5 mg tablet metoprolol succinate 50 mg 50 mg PO DAILY 11/02/23 11/02/23 History tablet,extended release 24 hr quetiapine 100 mg tablet 100 mg PO DAILY 11/02/23 11/02/23 History quetiapine 100 mg tablet 200 mg PO HS 11/02/23 11/02/23 History tizanidine 4 mg tablet 4 mg PO HS PRN MUSLCE SPASM 11/02/23 11/02/23 History New Prescriptions to Start Prescriptions: ondansetron Sana Solorzano Allergies Allergy/AdvReac Type Severity Reaction Status Date / Time amoxicillin [AMOXICILLIN] Allergy Unknown Verified 11/01/23 14:49 diphenhydramine Allergy Unknown Verified 11/01/23 14:49 [From BENADRYL] Penicillins [PENICILLINS] Allergy Unknown Verified 11/01/23 14:49 Discharge Plan Disposition Patient Disposition: Home, Self-Care Condition: Fair Discharge Order Discharge Orders: Discharge Order (Routine); Ordered 11/04/23 Ordered By: Irfan Dwight Follow up Plan Follow up with: Provider,Referral, [Primary Care Provider] - 2 weeks Prescriptions/Medication Reconciliation: New ondansetron 4 mg tablet,disintegrating 4 mg PO Q8H PRN (Reason: nausea and vomiting) 4 Days Qty: 12 0RF Continued ipratropium-albuterol 0.5 mg-3 mg(2.5 mg base)/3 mL solution for nebulization 3 ml inhalation Q4-6H PRN (Reason: shortness of breath or wheezing) Qty: 180 1RF lithium carbonate 300 mg tablet extended release 300 mg PO TID topiramate 50 mg tablet 50 mg PO HS Patient Comments: TAKE 1 TABLET BY MOUTH ONCE DAILY AT BEDTIME (STOP TOPIRAMATE 25MG AT BEDTIME) nystatin 100,000 unit/gram cream 1 applic topical TID Qty: 30 1RF spironolactone [Aldactone] 25 mg tablet 25 mg PO DAILY Qty: 30 2RF carbidopa-levodopa 25-100 mg tablet extended release 1 tab PO HS Qty: 30 2RF Trelegy Ellipta 100-62.5-25 mcg blister with device 1 inh inhalation DAILY Ubrelvy 100 mg tablet 100 mg PO ONCE PRN (Reason: Migraine Headache) (DME) blood pressure monitor Kit See Rx Instructions .ROUTE .MEDSUPPLY Qty: 1 0RF Rx Instructions: As directed ergocalciferol (vitamin D2) [Vitamin D2] 1,250 mcg (50,000 unit) capsule 1,250 mcg PO WEEKLY Qty: 5 2RF lidocaine 5 % adhesive patch,medicated 1 patch topical DAILY Rx Instructions: Leave on most painful area for up to 12 hrs budesonide-formoterol [Symbicort] 80-4.5 mcg/actuation HFA aerosol inhaler 1 puff inhalation BID levothyroxine 125 mcg capsule 125 mcg PO DAILY doxycycline monohydrate 100 mg capsule 100 mg PO BIDWMEAL Patient Comments: TAKE 1 CAPSULE BY MOUTH TWICE DAILY WITH FOOD metoprolol succinate 50 mg tablet extended release 24 hr 50 mg PO DAILY Rx Instructions: Take 1 tablet by mouth once daily gabapentin 400 mg capsule 400 mg PO TID PRN (Reason: Pain) quetiapine 100 mg tablet 100 mg PO DAILY Rx Instructions: TAKE 1 TABLET BY MOUTH IN THE MORNING AND TAKE 2 TABLETS BY MOUTH AT BEDTIME. lisinopril-hydrochlorothiazide 10-12.5 mg tablet 1 tab PO DAILY Rx Instructions: Take 1 tablet by mouth once daily clindamycin phosphate 1 % solution 1 applic TOPICAL DAILY Patient Comments: APPLY SOLUTION TOPICALLY TO AFFECTED AREA ONCE DAILY AFTER SHOWERING Rx Instructions: Apply solution topically to affected area once daily after showering. tizanidine 4 mg tablet 4 mg PO HS PRN (Reason: MUSLCE SPASM) albuterol sulfate [Ventolin HFA] 90 mcg/actuation HFA aerosol inhaler 2 puff inhalation Q8 PRN (Reason: Shortness Of Breath Or Wheezing) Rx Instructions: INHALE 2 PUFFS BY MOUTH EVERY 8 HOURS NEEDED FOR SHORTNESS OF BREATH FOR WHEEZING quetiapine 100 mg tablet 200 mg PO HS Problem Reconciliation Problems Reviewed?: Yes Patient Discharge Instructions ACTIVITY: Ambulate as tolerated Patient Instructions: Acute Kidney Injury, DI for Acute Kidney Injury Providers Primary Care Provider: Provider,Referral Admit Provider: Richi Quintanilla Attending Provider: Richi Quintanilla
--- NOTE | 2023-11-07 15:13 | CARE MANAGER ---
Contacted patient related to hospital discharge. She states that she is not feeling better and will reach out to Michelle to see about phenegran. Denies any other questions or concerns. CELESTINE Torres
== END 2023-11-04 11:34 | disposition home or self-care (01) | DRG 683 ==
LOC: ER 11-02 00:12 → 2ND 11-02 09:29
PROVIDERS: Emergency Medicine; Nurse Practitioner Family; Admitting Provider Internal Medicine; Emergency Provider Emergency Medicine; Visit Provider Internal Medicine
DX: N17.9 Acute kidney failure, unspecified (principal); Z68.41 Body mass index [BMI] 40.0-44.9, adult; F31.9 Bipolar disorder, unspecified; F41.9 Anxiety disorder, unspecified; I10 Essential (primary) hypertension; E66.9 Obesity, unspecified; J44.9 Chronic obstructive pulmonary disease, unspecified; M10.9 Gout, unspecified; G20.C Parkinsonism, unspecified
CPT/HCPCS: 36415; 74176; 80048; 80053; 81001; 83605; 83690; 83735; 85007; 85025; 87636; 93005; 94640; 97163; 97165; 99285; J2405

== ENCOUNTER 2023-11-10 18:56 | Outpatient (CLI) | payer OTHER, SELFPAY ==
[2023-11-10 18:57] LABS: Basophils # 0.1 K/mm3 (0-0.2); Basophils % 0.6 % (0.1-2.0); Eosinophils # 0.4 K/mm3 (0.0-0.4); Eosinophils % 2.6 % (0.1-12.0); Hematocrit 42.7 % (37.0-47.0); Hemoglobin 13.6 g/dL (12.2-16.2); Lymphocytes # 2.6 K/mm3 (0.7-4.5); Lymphocytes % 16.1 % (10-50); Mean Corpuscular HGB Conc 31.9 g/dL (31.8-35.4); Mean Corpuscular Hemoglobin 31.3 pg (27.0-31.2); Mean Corpuscular Volume 98.2 fl (81-99); Mean Platelet Volume 10.7 fl (7.4-10.4); Monocytes # 0.6 K/mm3 (0.1-1.0); Monocytes % 3.6 % (1.7-9.3); Neutrophils # 12.3 K/mm3 (1.8-7.8); Neutrophils % 77.1 % (37.0-80.0); Platelet Count 475 K/mm3 (142-424); Red Blood Count 4.35 M/mm3 (4.20-5.40); White Blood Count 15.9 K/mm3 (4.8-10.8)
[2023-11-10 18:58] LABS: MANUAL DIFFERENTIAL MANUAL DIFFERENTIAL (MANUAL DIFF)
[2023-11-10 19:15] LABS: Chloride 104 mmol/L (98-107); Potassium 3.9 mmoL/L (3.5-5.1); Sodium 136 mmol/L (136-145)
[2023-11-10 19:18] LABS: Alanine Aminotransferase 43 U/L (12-78); Albumin Level 4.5 g/dl (3.5-5.0); Albumin/Globulin Ratio 1.5 (1.1-1.8); Alkaline Phosphatase 127 U/L (38-126); Amylase 55 U/L (30-110); Anion Gap 13.9 mEq/L (5-15); Aspartate Amino Transferase 36 U/L (14-36); Bilirubin,Total 0.6 mg/dl (0.2-1.3); Blood Urea Nitrogen 12 mg/dl (7-17); Calcium 9.9 mg/dl (8.4-10.2); Carbon Dioxide 22 mmol/L (22.0-30.0); Estimated Glomerular Filt Rate 54 ml/min (>60); GFR (African American) 65 ML/MIN (>60); Glucose 101 mg/dl (74-100); Lipase 121 U/L (23-300); Total Protein,Serum 7.5 g/dl (6.3-8.2)
[2023-11-10 19:40] LABS: Eosinophils % 1 % (0-3); Lymphocytes % 19 % (10-50); Monocytes % 3 % (2-9); Neutrophils % 77 % (42-76); Platelet Estimate Normal; RBC Morphology Normal; Total Cells Counted 100
== END 2023-11-10 23:59 ==
LOC: LAB.DROPOF 18:56
PROVIDERS: PCP Physician Assistant; Visit Provider Physician Assistant
DX: N17.9 Acute kidney failure, unspecified (principal)
CPT/HCPCS: 80053; 82150; 83690; 85007; 85025

== ENCOUNTER 2023-11-16 10:18 | Outpatient (CLI) | payer OTHER, SELFPAY ==
[2023-11-16 10:23] LABS: Adenovirus F 40/41, stool Not Detected (NotDetected); Astrovirus Not Detected (NotDetected); Campylobacter Not Detected (NotDetected); Clostridium Difficile A/B, PCR Not Detected (NotDetected); Cryptosporidium Not Detected (NotDetected); Cyclospora Cayetanesis Not Detected (NotDetected); Entamoeba histolytica Not Detected (NotDetected); Enteroaggregative E coli Not Detected (NotDetected); Enteropathogenic E coli Not Detected (NotDetected); Enterotoxigenic E coli Not Detected (NotDetected); Giardia lamblia Not Detected (NotDetected); Norovirus Not Detected (NotDetected); Plesimonas Shigalloides, PCR Not Detected (NotDetected); Rotavirus A Not Detected (NotDetected); Salmonella, PCR Not Detected (NotDetected); Sapovirus Not Detected (NotDetected); Shiga-like toxin E coli Not Detected (NotDetected); Shigella Enterovasive E coli Not Detected (NotDetected); Vibrio Cholerae Not Detected (NotDetected); Vibrio, PCR Not Detected (NotDetected); Yersinia Entercolitica, PCR Not Detected (NotDetected)
== END 2023-11-16 23:59 ==
LOC: LAB.DROPOF 10:18
PROVIDERS: PCP Physician Assistant; Visit Provider Physician Assistant
DX: R11.2 Nausea with vomiting, unspecified (principal); K21.9 Gastro-esophageal reflux disease without esophagitis; R14.0 Abdominal distension (gaseous)
CPT/HCPCS: 87507

== ENCOUNTER 2024-01-25 09:48 | Outpatient (CLI) | payer OTHER, SELFPAY ==
[2024-01-25 09:53] LABS: Adenovirus F 40/41, stool Not Detected (NotDetected); Astrovirus Not Detected (NotDetected); Campylobacter Not Detected (NotDetected); Clostridium Difficile A/B, PCR Not Detected (NotDetected); Cryptosporidium Not Detected (NotDetected); Cyclospora Cayetanesis Not Detected (NotDetected); Entamoeba histolytica Not Detected (NotDetected); Enteroaggregative E coli Not Detected (NotDetected); Enteropathogenic E coli Not Detected (NotDetected); Enterotoxigenic E coli Not Detected (NotDetected); Giardia lamblia Not Detected (NotDetected); Norovirus Not Detected (NotDetected); Plesimonas Shigalloides, PCR Not Detected (NotDetected); Rotavirus A Not Detected (NotDetected); Salmonella, PCR Not Detected (NotDetected); Sapovirus Not Detected (NotDetected); Shiga-like toxin E coli Not Detected (NotDetected); Shigella Enterovasive E coli Not Detected (NotDetected); Vibrio Cholerae Not Detected (NotDetected); Vibrio, PCR Not Detected (NotDetected); Yersinia Entercolitica, PCR Not Detected (NotDetected)
== END 2024-01-25 23:59 | disposition home or self-care (01) ==
LOC: LAB.DROPOF 09:49
PROVIDERS: PCP Physician Assistant; Visit Provider Physician Assistant
DX: R19.7 Diarrhea, unspecified (principal)
CPT/HCPCS: 87507

== ENCOUNTER 2024-03-19 15:34 | Outpatient (CLI) | payer OTHER, SELFPAY ==
[2024-03-19 17:57] LABS: Basophils # 0.1 K/mm3 (0-0.2); Basophils % 0.9 % (0.1-2.0); Eosinophils # 0.5 K/mm3 (0.0-0.4); Eosinophils % 6.3 % (0.1-12.0); Hematocrit 39.1 % (37.0-47.0); Hemoglobin 12.7 g/dL (12.2-16.2); Lymphocytes % 37.2 % (10-50); Mean Corpuscular HGB Conc 32.4 g/dL (31.8-35.4); Mean Corpuscular Hemoglobin 30.9 pg (27.0-31.2); Mean Corpuscular Volume 95.3 fl (81-99); Mean Platelet Volume 10.3 fl (7.4-10.4); Monocytes # 0.4 K/mm3 (0.1-1.0); Monocytes % 5.3 % (1.7-9.3); Neutrophils # 4.1 K/mm3 (1.8-7.8); Neutrophils % 50.2 % (37.0-80.0); Platelet Count 275 K/mm3 (142-424); Red Cell Distribution Width 13.4 % (11.5-17.5); White Blood Count 8.1 K/mm3 (4.8-10.8)
[2024-03-19 18:10] LABS: Alanine Aminotransferase 35 U/L (12-78); Albumin Level 3.8 g/dl (3.5-5.0); Albumin/Globulin Ratio 1.2 (1.1-1.8); Alkaline Phosphatase 83 U/L (38-126); Anion Gap 13.2 mEq/L (5-15); Aspartate Amino Transferase 35 U/L (14-36); Bilirubin,Total 0.5 mg/dl (0.2-1.3); Blood Urea Nitrogen 14 mg/dl (7-17); Calcium 9.5 mg/dl (8.4-10.2); Carbon Dioxide 25 mmol/L (22.0-30.0); Chloride 105 mmol/L (98-107); Chol/HDL Ratio 5.5 (1-3.5); Cholesterol 202 mg/dl (140-200); Estimated Glomerular Filt Rate 60 ml/min (>60); GFR (African American) 73 ML/MIN (>60); Globulin 3.2 g/dL (1.3-3.2); Glucose 90 mg/dl (74-100); HDL Cholesterol 37 mg/dl (40-60); Potassium 4.2 mmoL/L (3.5-5.1); Sodium 139 mmol/L (136-145); Triglycerides 172 mg/dl (30-150); VLDL Cholesterol 34 mg/dL (0-40)
[2024-03-19 18:20] LABS: Direct LDL Cholesterol 117.16 mg/dL (100-129)
[2024-03-19 18:23] LABS: 25-OH Vitamin D, Total 47.9 ng/mL (30-100)
== END 2024-03-19 23:59 | disposition home or self-care (01) ==
LOC: LAB.DROPOF 03-20 15:34
PROVIDERS: PCP Physician Assistant; Visit Provider Physician Assistant
DX: I10 Essential (primary) hypertension (principal); N39.0 Urinary tract infection, site not specified
CPT/HCPCS: 80050; 80053; 80061; 82306; 84443; 85025; 87086

== ENCOUNTER 2024-05-08 13:45 | Outpatient (CLI) | payer OTHER, SELFPAY | END 2024-05-08 23:59 | disposition home or self-care (01) | LOC: LAB.DROPOF 05-09 12:46 | PROVIDERS: PCP Podiatrist; Visit Provider Podiatrist | DX: L60.0 Ingrowing nail (principal); M79.673 Pain in unspecified foot | CPT/HCPCS: 87070; 87077; 87186; 87205 ==

== ENCOUNTER 2024-05-29 14:13 | Outpatient (CLI) | payer OTHER, SELFPAY ==
--- NOTE | 2024-05-29 14:24 | XR_ITS ---
FINAL REPORT CLINICAL HISTORY: pre operative testing COMPARISON: 02/22/2023 FINDINGS: Two views of the chest were obtained. The heart size and pulmonary vascularity are within normal limits. The mediastinum is normal. No acute pulmonary abnormality is identified. There is no pneumothorax. The bony thorax is intact. IMPRESSION: No active cardiopulmonary disease. Reviewed, Interpreted and Dictated by Allen Ponce III, MD Transcribed by Lory Srivastava Authenticated and [facility]
--- NOTE | 2024-05-29 14:24 | XR_ITS ---
FINAL REPORT CLINICAL HISTORY: foot pain, pre op exam COMPARISON: None FINDINGS: RIGHT FOOT: Three views of the right foot were obtained. There is no acute fracture or dislocation. Mild degenerative changes are present. There is no soft tissue abnormality. Calcaneal spurs are noted. IMPRESSION: Mild degenerative change without acute bony abnormality. Reviewed, Interpreted and Dictated by Allen Ponce III, MD Transcribed by Lory Srivastava Authenticated and [facility]
== END 2024-05-29 23:59 | disposition home or self-care (01) ==
LOC: LAB 14:20 → RAD 14:57
PROVIDERS: PCP Physician Assistant; Visit Provider Podiatrist
DX: Z01.818 Encounter for other preprocedural examination (principal); M79.671 Pain in right foot
CPT/HCPCS: 71046; 73630

== ENCOUNTER 2024-05-31 10:00 | Outpatient (CLI) | payer OTHER, SELFPAY ==
--- NOTE | 2024-05-31 10:24 | ECG_ITS ---
APPROVED REPORT Exam: Resting ECG HR:53 bpm ECG Measurements Heart Rate 53 AXES [place] 188 P 4 QRSd 86 QRS 24 QT 409 T 4 QTc 393 Conclusion SINUS BRADYCARDIA BORDERLINE ECG UNCONFIRMED REPORT Electronically signed by : August Mackey MD 06/01/2024 09:16:25
[2024-05-31 11:19] LABS: Basophils # 0.1 K/mm3 (0-0.2); Basophils % 1.1 % (0.1-2.0); Eosinophils # 0.6 K/mm3 (0.0-0.4); Eosinophils % 8.6 % (0.1-12.0); Hematocrit 36.8 % (37.0-47.0); Hemoglobin 12.2 g/dL (12.2-16.2); Lymphocytes # 2.2 K/mm3 (0.7-4.5); Lymphocytes % 31.5 % (10-50); Mean Corpuscular HGB Conc 33.1 g/dL (31.8-35.4); Mean Corpuscular Hemoglobin 30.8 pg (27.0-31.2); Mean Platelet Volume 10.4 fl (7.4-10.4); Monocytes # 0.5 K/mm3 (0.1-1.0); Monocytes % 6.8 % (1.7-9.3); Neutrophils # 3.6 K/mm3 (1.8-7.8); Platelet Count 218 K/mm3 (142-424); Red Blood Count 3.96 M/mm3 (4.20-5.40); Red Cell Distribution Width 13.7 % (11.5-17.5)
[2024-05-31 11:42] LABS: Alanine Aminotransferase 37 U/L (12-78); Albumin Level 3.5 g/dl (3.5-5.0); Albumin/Globulin Ratio 1.3 (1.1-1.8); Alkaline Phosphatase 81 U/L (38-126); Anion Gap 3.2 mEq/L (5-15); Aspartate Amino Transferase 34 U/L (14-36); Bilirubin,Total 0.5 mg/dl (0.2-1.3); Blood Urea Nitrogen 18 mg/dl (7-17); Carbon Dioxide 28 mmol/L (22.0-30.0); Chloride 110 mmol/L (98-107); Estimated Glomerular Filt Rate 60 ml/min (>60); GFR (African American) 73 ML/MIN (>60); Globulin 2.7 g/dL (1.3-3.2); Glucose 91 mg/dl (74-100); Potassium 4.2 mmoL/L (3.5-5.1); Sodium 137 mmol/L (136-145); Total Protein,Serum 6.2 g/dl (6.3-8.2); Uric Acid 7.6 mg/dl (2.5-6.2)
[2024-05-31 11:47] LABS: C-Reactive Protein 1.4 mg/L (0-4)
[2024-05-31 12:36] LABS: Erythrocyte Sedimentation Rate 22 mm/hr (0-20)
== END 2024-05-31 23:59 | disposition home or self-care (01) ==
LOC: LAB 10:03
PROVIDERS: PCP Physician Assistant; Visit Provider Podiatrist
DX: Z01.818 Encounter for other preprocedural examination (principal)
CPT/HCPCS: 36415; 80053; 84550; 85025; 85651; 86140; 93005

== ENCOUNTER 2024-06-14 11:22 | Day surgery (SDC) | payer OTHER, SELFPAY ==
[2024-06-12 15:20] VITALS: BMI 36.6
[2024-06-14] VITALS (10 sets, daily range): BP systolic 94–115; BP diastolic 43–67; PULSE 53–73; RESP 16–71; TEMP 36.1–36.4; O2SAT 92–97
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
[2024-06-14] MEDS: VANCOMYCIN/WATER FOR INJ (PEG) 1.5 GM/300 ML PIGGYBACK IV (13:15)
[2024-06-14] MEDS: GENTAMICIN 80 MG/2 ML VIAL (13:38)
--- NOTE | 2024-06-14 14:06 | P.OP_ITS ---
Date of procedure: 06/14/24 Pre-op Diagnosis:: Right 5th hammertoe Right curly toe deformity Skin lesion, Hx TNA Post-op Diagnosis:: Same Procedure performed:: Right 5th hammertoe repair (arthroplasty) soft tissue reconstruction angular toe deformity Winograd nail excision (wedge resection plus complete nail plate avulsion) Surgeon:: Flaquita Heredia DPM CONFIGURATION TECHNICIAN:: Chema Mares Anesthesia: regional (R popliteal nerve block) and LMA Estimated blood loss (mL): 15 Clinical Note:: Patient is a 43 y/o female who presents with painful 5th toe deformity. She has also had partial and total nail avulsion with culture and tissue biopsy. The lesion over the previous TNA painful recurs. Recent imaging reviewed. The patient has tried modification of activity/shoe gear, taping, bunion splint/strapping, inserts, ice, elevation, NSAIDs, stretching. After a long discussion with the patient in regards to the conservative versus surgical treatment for the toe deformity, the patient has elected to proceed with surgery because they have failed conservative treatment and continue to have pain and worsening symptoms affecting daily activities. Discussed removal of skin lesion and toenail bed, hammertoe repair. The patient has been instructed on the planned procedure, all risk versus benefits of the procedure to include bleeding, infection, nerve and blood vessel damage, need for further surgery, delay in healing of soft tissue or bone, failure of bones to heal, non-union, mal-union, prolonged pain and recovery, prolonged swelling, CRPS/RSD, DVT/PE and anesthetic complications inclduing . Discussed increased risk of wound healing complications and infection due to smoking history. Smoking cessation given. Patient understands if there is wound complications, it could lead to infection warranting oral or IV antibiotics, gangrene necessitating toe amputation. No guarantees were given. All questions fully answered. The patient verbalized understanding and agreed to proceed with surgery. Written consent was obtained. Operative findings:: Right fifth toe adductovarus rotation with curly toe deformity. PIPJ semi reducible contracture noted. Along the fifth toenail bed there is thickened hyperkeratotic skin. History of total nail avulsion with phenol with recurrent growth of skin thicken abnormality. No purulence, malodor or drainage. No signs of infection noted. Wedge resection plus complete nail plate avulsion performed. Separate incision made for the hammertoe repair. Dorsal bony exostosis over the proximal phalanx head, was removed with arthroplasty. Operative note:: On this date and time patient was deemed an appropriate surgical candidate. With informed consent signed, the patient was taken to the operating theater after right regional nerve block by anesthesia. The patient was positioned supine. General anesthesia was induced. Tourniquet was applied to the right thigh at 300mmHg. IV vancomycin infused. Right lower extremity prepped and draped in normal sterile fashion. Winograd nail excision: Abnormal skin tissue noted of the fifth toenail bed where previous total nail avulsion with phenol had been performed several times. An elliptical incision was made over the nailbed. Full-thickness down to the level of the distal phalanx bone. The abnormal scar and hyperkeratotic tissue and nail plate was removed in total. Piece was sent for tissue culture and a piece for pathology. No deep signs of infection. Wound flushed with gentamicin irrigation. Right soft tissue reconstruction angular toe deformity: A separate incision was made proximally to the Winograd incision in order to lengthen the tissue so there was enough to derotate the toe superior and medially after hammertoe repair. Right 5th HT repair/digit PIPJ AP: Attention was directed to the right 5th toe, where an elliptical incision was made over the PIPJ in order to derotate the toe. Full-thickness dissection down to the level of the proximal phalanx. Trans verse tenotomy performed at the PIPJ, with release of the medial and lateral collateral ligaments. Soft was used to resect the head of the proximal phalanx. The was flushed with copious amounts of gentamicin irrigation. The tendon was repaired with 3-0 Vicryl. Toe was derotated from lateral to superior medial. 4-0 Nylon was used to close skin in a simple suture fashion. Skin cleansed. The tourniquet was deflated after 19 mins and immediate hyperemic response was noted to the digits. Xeroform, Betadine soaked gauze, dry sterile dressing was then applied to the right foot. The patient was awoken from anesthesia and transferred to recovery with vital signs stable and neurovascular status intact. Patient appeared to tolerate procedure and anesthesia well without complication. Discharge/Plan: D/C home today when ready and vital signs stable. Patient is to maintain dressing clean dry and intact. Ice to the top of the foot and elevate on two pillows. WBaT to RLE in fracture boot. Obtain post op films, right foot, 3 views. Follow up in one week for skin check. Tourniquet time (min): 19 Condition: stable Disposition: same day Specimens:: Right 5th toe lesion tissue culture Right 5th toe lesion tissue path Right 5th phalanx path Complications:: None
--- NOTE | 2024-06-14 14:23 | P.PNANES_ITS ---
[facility] Anesthesia Record Part I Anesthesia Record I Intake, IV Amount: 1,500 Hydration: Adequate Estimated blood loss (mL): 9 Urine output (mL): 0 Blood Products used (#): none Blood Pressure: 115/67 SaO2: 92 Pulse Rate: 71 Airway Patency: Patent Respiratory Rate: 18 Temperature: 97.6 F Patient is:: Drowsy and Stable Stable to PACU at:: 14:15
--- NOTE | 2024-06-14 14:26 | P.PNANES_ITS ---
[facility] Anesthesia Record Part I Anesthesia Record I Intake, IV Amount: 1,500 Hydration: Adequate Estimated blood loss (mL): 9 Urine output (mL): 0 Blood Products used (#): none Blood Pressure: 115/67 SaO2: 92 Pulse Rate: 71 Airway Patency: Patent Respiratory Rate: 71 Temperature: 97.6 F Patient is:: Awake and Drowsy Stable to PACU at:: 14:15
[2024-06-14] MEDS: MORPHINE 2MG/ML SYRINGE 1 MG IV (14:45)
--- NOTE | 2024-06-14 14:45 | XR_ITS ---
PROCEDURE INFORMATION: Exam: XR Right Foot Exam date and time: 06/14/2024 2:31 PM Age: 43 years old Clinical indication: Pain; Foot; Right; Additional info: Post op 5th ht repair/arthroplasty TECHNIQUE: Imaging protocol: Radiologic exam of the right foot. Views: 3 or more views. COMPARISON: CR XR FOOT WT BEARING RT 3V 05/29/2024 2:32 PM FINDINGS: Bones/joints: There is suboptimal bony detail of the 5th toe due to dressing/splinting. No acute fracture is identified. No dislocation. An Achilles enthesophyte is noted. A plantar calcaneal spur is noted. Soft tissues: Normal. IMPRESSION: 1. Suboptimal bony detail of the 5th toe due to dressing/splinting. 2. No acute fracture or dislocation is seen.
--- NOTE | 2024-06-15 13:21 | P.PNANES_ITS ---
[facility] Anesthesia Record Part II Anesthesia Record Part II Discharge Time: 14:46 Destination: Surgical Day Care (OP Surgery) PACU nurse assessment reviewed?: Yes Patient Condition:: Good Anesthesia Complications:: None Swallowing reflex intact?: Yes Airway Patency: Patent Cyanosis?: No Blood Pressure: 107/56 SaO2: 96 Respiratory Rate: 16 Pulse Rate: 71 Temperature: 97 F Mental Status: Alert & Oriented Pain level:: 0 Nausea and/or vomitting:: None Intake, IV Amount: 0 Hydration: Adequate
[2024-06-15 13:23] VITALS: BP 107/56; PULSE 71; RESP 16; TEMP 36.1; O2SAT 96
== END 2024-06-14 15:28 | disposition home or self-care (01) ==
PROVIDERS: PCP Physician Assistant; Visit Provider Podiatrist
PROC: (CPT 11750; principal; 2024-06-14 13:00)
DX: M20.41 Other hammer toe(s) (acquired), right foot (principal); M10.071 Idiopathic gout, right ankle and foot; M79.671 Pain in right foot; M20.5X1 Other deformities of toe(s) (acquired), right foot; Z79.899 Other long term (current) drug therapy
CPT/HCPCS: 11750; 28285; 28313; 73630; 87070; 87205; 96374; J1580; J2250; J2270; J3010

== ENCOUNTER 2024-06-21 08:37 | Outpatient (CLI) | payer OTHER, SELFPAY ==
--- NOTE | 2024-06-21 08:42 | US_ITS ---
PROCEDURE INFORMATION: Exam: US Abdomen, Limited; Right Upper Quadrant Exam date and time: 06/21/2024 9:46 AM Age: 43 years old Clinical indication: Abnormal findings; Abnormal lab test; Elevated liver enzymes; Additional info: Elevated levels of liver transaminase levels TECHNIQUE: Imaging protocol: Real time ultrasound of the abdomen with image documentation. Limited exam focused on the right upper quadrant. COMPARISON: CT ABDOMEN PELVIS WO CON 11/01/2023 10:17 PM FINDINGS: Liver: Fatty infiltration. No definite mass. Few calcifications. No intrahepatic ductal dilatation. Gallbladder: Cholecystectomy. Biliary ducts: No dilatation. No stones. Pancreas: Obscured by overlying bowel gas. Right kidney: Normal echogenicity. No hydronephrosis. IMPRESSION: No acute findings.
== END 2024-06-21 23:59 | disposition home or self-care (01) ==
LOC: RAD 08:38
PROVIDERS: PCP Physician Assistant; Visit Provider Physician Assistant
DX: R74.01 Elevation of levels of liver transaminase levels (principal)
CPT/HCPCS: 76705

== ENCOUNTER 2024-07-09 07:28 | Outpatient (CLI) | payer OTHER, SELFPAY ==
--- NOTE | 2024-07-09 07:30 | MM_ITS ---
PROCEDURE INFORMATION: Exam: Bilateral Screening 3D Mammography Exam date and time: 07/09/2024 7:49 AM Age: 43 years old Clinical indication: Screening mammogram TECHNIQUE: Imaging protocol: Bilateral Screening tomosynthesis and 2D mammography including computer-aided detection (CAD) when performed. COMPARISON: No relevant prior studies available. FINDINGS: MAMMOGRAPHY: Breast composition: There are scattered areas of fibroglandular density. Mass: 0.4 cm mass within the lower posterior right breast about 8 cm from the nipple, not included on CC view, should be further assessed with spot views in XCCL/MLO projection. Ultrasound should also be scheduled. Architectural distortion: No new or suspicious architectural distortion. Calcifications: No new or suspicious calcifications are present Asymmetric density: No new or suspicious asymmetric density is present Skin thickening: None. Axillary adenopathy: None. IMPRESSION: 0.4 cm mass within the lower posterior right breast about 8 cm from the nipple, not included on CC view, should be further assessed with spot views in XCCL/MLO projection. Ultrasound should also be scheduled. Please be certain to carlos alberto any skin lesions prior to imaging ASSESSMENT: BI-RADS Category 0: Incomplete - Need Additional Imaging Evaluation
== END 2024-07-09 23:59 | disposition home or self-care (01) ==
LOC: RAD 07:29
PROVIDERS: PCP Physician Assistant; Visit Provider Physician Assistant
DX: Z12.31 Encounter for screening mammogram for malignant neoplasm of breast (principal)
CPT/HCPCS: 77063; 77067

== ENCOUNTER 2024-07-26 11:25 | Outpatient (CLI) | payer OTHER, SELFPAY ==
--- NOTE | 2024-07-26 11:41 | XR_ITS ---
FINAL REPORT CLINICAL HISTORY: Foot pain right foot pain prior surgery on foot COMPARISON: None FINDINGS: RIGHT FOOT: Three views of the right foot were obtained. There is no acute fracture or dislocation. Small calcifications are present adjacent to the interphalangeal joint of the first toe and the fifth PIP joint. Mild degenerative change is present. Note is made of pes planus. Small calcaneal spurs are present as well. There is no soft tissue abnormality. IMPRESSION: No acute bony abnormality. Reviewed, Interpreted and Dictated by Allen Ponce III, MD Transcribed by Lory Srivastava Authenticated and [facility]
[2024-07-26 12:00] LABS: Basophils # 0.1 K/mm3 (0-0.2); Basophils % 1.4 % (0.1-2.0); Eosinophils # 0.7 K/mm3 (0.0-0.4); Eosinophils % 8.1 % (0.1-12.0); Hematocrit 37.8 % (37.0-47.0); Hemoglobin 12.6 g/dL (12.2-16.2); Lymphocytes # 2.7 K/mm3 (0.7-4.5); Lymphocytes % 33.3 % (10-50); Mean Corpuscular HGB Conc 33.4 g/dL (31.8-35.4); Mean Corpuscular Hemoglobin 30.7 pg (27.0-31.2); Mean Corpuscular Volume 92.1 fl (81-99); Mean Platelet Volume 9.9 fl (7.4-10.4); Monocytes # 0.5 K/mm3 (0.1-1.0); Monocytes % 6.4 % (1.7-9.3); Neutrophils # 4.2 K/mm3 (1.8-7.8); Neutrophils % 50.9 % (37.0-80.0); Platelet Count 249 K/mm3 (142-424); Red Blood Count 4.11 M/mm3 (4.20-5.40); Red Cell Distribution Width 12.9 % (11.5-17.5); White Blood Count 8.2 K/mm3 (4.8-10.8)
[2024-07-26 12:26] LABS: Erythrocyte Sedimentation Rate 20 mm/hr (0-20)
[2024-07-26 12:43] LABS: Alanine Aminotransferase 46 U/L (12-78); Albumin Level 3.9 g/dl (3.5-5.0); Albumin/Globulin Ratio 1.4 (1.1-1.8); Alkaline Phosphatase 111 U/L (38-126); Anion Gap 10.6 mEq/L (5-15); Aspartate Amino Transferase 36 U/L (14-36); Bilirubin,Total 0.4 mg/dl (0.2-1.3); Blood Urea Nitrogen 17 mg/dl (7-17); Calcium 9.2 mg/dl (8.4-10.2); Carbon Dioxide 31 mmol/L (22.0-30.0); Chloride 102 mmol/L (98-107); Estimated Glomerular Filt Rate 54 ml/min (>60); GFR (African American) 65 ML/MIN (>60); Globulin 2.8 g/dL (1.3-3.2); Glucose 93 mg/dl (74-100); Potassium 4.6 mmoL/L (3.5-5.1); Sodium 139 mmol/L (136-145); Total Protein,Serum 6.7 g/dl (6.3-8.2)
[2024-07-26 12:49] LABS: C-Reactive Protein 1.1 mg/L (0-4)
== END 2024-07-26 23:59 | disposition home or self-care (01) ==
LOC: LAB 11:26
PROVIDERS: PCP Physician Assistant; Visit Provider Podiatrist
DX: R11.2 Nausea with vomiting, unspecified (principal); Z98.890 Other specified postprocedural states; G89.18 Other acute postprocedural pain; M79.671 Pain in right foot; M79.672 Pain in left foot
CPT/HCPCS: 36415; 73630; 80053; 85025; 85651; 86140

== ENCOUNTER 2024-09-05 12:33 | Outpatient (CLI) | payer OTHER, SELFPAY ==
--- NOTE | 2024-09-05 | MR_ITS ---
FINAL REPORT TECHNIQUE: Multiplanar MR without contrast CLINICAL HISTORY: .left sided headaches pain radiates down contre[place] to legs COMPARISON: 03/09/2023 FINDINGS: Diffusion sequences show no signal abnormality to indicate acute infarct. No mass, hemorrhage or edema is seen. Ventricles are normal. Major vascular flow voids are intact. The cerebellar tonsils demonstrate ectasia up to 6 mm, which is stable from the prior examination of 2022. This could represent mild Chiari I malformation without hydrocephalus. IMPRESSION: Cerebellar tonsillar ectasia measuring up to 6 mm, stable when compared to the prior exam. This could represent a mild Chiari I malformation without hydrocephalus. Reviewed, Interpreted and Dictated by Juanpablo Rodriguez MD Transcribed by Lory Srivastava Authenticated and . [facility]
== END 2024-09-05 23:59 | disposition home or self-care (01) ==
LOC: RAD 12:34
PROVIDERS: Visit Provider Physician Assistant
DX: G44.52 New daily persistent headache (NDPH) (principal)
CPT/HCPCS: 70551

== ENCOUNTER 2024-09-12 12:16 | Outpatient (CLI) | payer OTHER, SELFPAY ==
--- NOTE | 2024-09-12 12:20 | US_ITS ---
PROCEDURE INFORMATION: Exam: US Right Breast, Complete MG Right Diagnostic Breast Tomosynthesis Exam date and time: 09/12/2024 12:47 PM Age: 43 years old Clinical indication: Callback from screening mammogram for a right breast finding. TECHNIQUE: Imaging protocol: Complete ultrasound of all four quadrants of the right breast and the retroareolar regions, including ultrasound of the axilla when performed. Right Diagnostic tomosynthesis and 2D mammography including computer-aided detection (CAD) when performed. Unilateral or bilateral exam. COMPARISON: 1. MG MM DIG SCREENING MAMM BI W/CAD 07/09/2024 7:49 AM 2. US BREAST RT COMPLETE 09/12/2024 12:39 PM FINDINGS: MAMMOGRAPHY: Breast composition: There are scattered areas of fibroglandular density (based on the most recent screening mammogram report.) Breast mammogram findings: Evaluation the right inferior breast at the posterior aspect demonstrates no persistent mass. Mole markers are utilized on the current study and the finding on screening mammogram dated 07/09/2024 is most likely consistent with a skin mole. No suspicious calcifications or distortion. ULTRASOUND: Breast ultrasound findings: Ultrasound of the right breast is performed and demonstrates no suspicious masses. A benign sebaceous cyst is noted in the lower inner quadrant at the 7 o'clock axis, 1 cm from the nipple measuring 0.5 cm. Sebaceous cyst is also noted in the 8 o'clock axis, 7 cm from the nipple measuring 0.9 cm. There is no underlying breast mass. No axillary adenopathy. IMPRESSION: 1. Sebaceous cysts in the right breast as above. No persistent mass is seen on the mammogram, consistent with a skin mole. 2. Further clinical follow-up for the sebaceous cysts as needed is recommended. These can be removed by environmental epidemiologist if they become larger or worrisome to the patient. 3. Annual bilateral mammographic screening is recommended unless otherwise clinically indicated. ASSESSMENT: BI-RADS Category 2: Benign.
== END 2024-09-12 23:59 | disposition home or self-care (01) ==
LOC: RAD 12:17
PROVIDERS: PCP Physician Assistant; Visit Provider Physician Assistant
DX: N63.10 Unspecified lump in the right breast, unspecified quadrant (principal)
CPT/HCPCS: 76641; 77061; 77065; G0279

== ENCOUNTER 2024-10-16 09:10 | Outpatient (CLI) | payer OTHER, SELFPAY ==
--- NOTE | 2024-10-16 09:15 | US_ITS ---
FINAL REPORT TECHNIQUE: Multiple transverse and longitudinal scans were performed of the right upper quadrant of the abdomen. CLINICAL HISTORY: ABNORMAL LEVELS COMPARISON: None FINDINGS: HEPATIC ULTRASOUND Liver parenchyma appears normal. Liver is normal in size. No focal lesion is present. No intrahepatic duct dilatation is identified. No evidence of common bile duct dilatation is identified. Doppler exam shows normal directional flow within patent hepatic and portal veins. The gallbladder is surgically absent.. No evidence of perihepatic fluid is identified. IMPRESSION: Unremarkable hepatic ultrasound . Reviewed, Interpreted and Dictated by Juanpablo Rodriguez MD Transcribed by Jael Nelson Authenticated and [facility]
== END 2024-10-16 23:59 | disposition home or self-care (01) ==
PROVIDERS: PCP Physician Assistant; Visit Provider Physician Assistant
DX: R74.8 Abnormal levels of other serum enzymes (principal)
CPT/HCPCS: 76705